=== PATIENT | male | born 1940 | race Caucasian/White ===

== ENCOUNTER 2023-11-08 09:21 | Emergency (ER) | payer MEDICARE, SELFPAY ==
[2023-11-08 09:34] VITALS: BP 124/71
[2023-11-08 09:59] VITALS: BMI 27.1
--- NOTE | 2023-11-08 10:52 | ED.GENMED ---
History of Present Illness
General
Chief Complaint: Musculo-Skeletal Complaint
Source: patient
Time Seen by Provider: 11/08/23 10:03
History of Present Illness
History of Present Illness:
83-year-old male with past medical history of DVT/PE, hyperlipidemia, previous prostate cancer presenting to the emergency department for evaluation of atraumatic left knee pain that has been gradually worsening over the last 3 to 4 days. Patient
states pain started as more of a gradual pain, medial aspect of the knee and nonradiating. Over the last few days pain seems to be more along the mid posterior thigh and extending downward with the pain worsening while standing or ambulating.
Patient notes that he did have 1 fall around 1 month ago but states he did not injure his knee at that time and he does not believe that to have been the cause of his pain today. He denies any fevers, chills, rigors. He is also denying any cough,
chest pain, shortness of breath or any other concerns presently. Patient did not take anything for his pain prior to arrival today.
Past History
Past History
ED Past Medical History: Cancer, Hypercholesterolemia and Other (DVT/PE)
ED Past Surgical History: Cholecystectomy and Orthopedic (discectomy)
Social History
Tobacco: Non-smoker
Alcohol: None
Drug: None
Personal:
Living: with family
Employment: Retired
Review of Systems
Review of Systems
All Other Systems: ROS reviewed and negative except as documented in HPI and ROS
Phy Exam
Physical Exam
Physical Exam:
GENERAL: Alert , in no apparent distress
EYE: conjunctiva clear
Head: Normocephalic atraumatic
NECK: Supple,
ENT: mmm.
LUNGS: no acute respiratory distress
NEUROLOGICAL: Alert and oriented
SKIN: Warm and dry, skin intact.
MUSCULOSKELETAL: Left lower extremity: Mild soft tissue swelling at the anterior patella but no overlying joint effusion. There is no overlying erythema, ecchymosis, abrasions or breaks in the skin. Patient does allow for range of motion but does
have discomfort while doing so. No significant calf edema or tenderness. Extremity is otherwise warm and well-perfused and neurovascularly intact
PSYCH: Normal and appropriate interaction.
Scores
Heart Failure Risk
Heart Failure Risk Score: Not Applicable
Heart Score for Chest Pain Patients
STEMI patient?: Not applicable
Withdrawal Assessment of Alcohol
Withdrawal Assessment Completed?: Not applicable
Course
Orders/Labs/Results
Orders:
Orders
11/08/23 10:07
CR Knee - Left 4 Or More View* Urgent
Comment:
Reason For Exam: left knee pain
11/08/23 10:50
Physical Therapy Consult [Pt Eval And Treat] Urgent
Activity Level: Ambulate
US Periph Venous LOWER Ext LT Urgent
Comment:
Reason For Exam: pain, edema
11/08/23 10:55
Acetaminophen [Tylenol] 1,000 mg PO NOW STA
Oxycodone [Roxicodone] 5 mg PO NOW STA
Vital Signs
Initial and Last Documented VS:
Initial Vital Signs
Temp Pulse BP Pulse Ox
98.0 F 77 124/71 98
11/08/23 09:34 11/08/23 09:34 11/08/23 09:34 11/08/23 09:34
Last Documented Vital Signs
Temp Pulse Resp BP Pulse Ox
98.0 F 68 15 148/61 99
11/08/23 09:34 11/08/23 11:54 11/08/23 11:54 11/08/23 11:54 11/08/23 11:54
MDM/Problems Addressed
Differential Diagnosis Includes:
Osteoarthritis, gout, DVT, no concern for septic joint
MDM/Problems Addressed:
83-year-old male presenting to the emergency department for atraumatic left knee pain x 3 to 4 days. Pain is also along the posterior and medial thigh and also goes down towards the gastrocnemius. No signs of neurovascular compromise and no signs
of infection. Will order x-ray and ultrasound. Pain control with Tylenol and oxycodone. Ordered physical therapy consult as patient states he is having a significantly hard time ambulating even with his walker.
*Radiology
Radiology exam reviewed: preliminary read by ED provider (mild DJD on XR)
*Pulse Oximetry
Patient hypoxic: no
*Critical Care Note
Total Time (30-74mins, 75-104mins- exclusive of procedures): Not Applicable
Patient Management
Discussion with other providers: Other (Physical therapy team)
Escalation/DeEscalation of care consider admission/obs:
Patient's x-ray without any acute pathologies. He was seen by physical therapy and was able to ambulate steadily with a walker. Patient feels comfortable being discharged home. He will follow-up with [facility] orthopedics who is seen in the
past for other orthopedic issues. Aware of return precautions to the emergency department.
ED Attending Note
-
Portions of this chart may have been created with voice recognition software.� Occasional wrong word or��sound alike� substitutions may have occurred due to the inherent limitations of voice recognition software.
Discharge Plan
Departure
Patient Disposition: Home (Routine Discharge)
Date of Disposition: 11/08/23
Time of Disposition: 12:14
Patient with high blood pressure during this ER visit?: Yes
Discharge Problem:
Knee pain, left
Instructions: Knee Pain (DC)
Prescriptions:
New
oxycodone 5 mg tablet
5 mg PO BID PRN (Reason: Pain) Qty: 6 0RF
docusate sodium [Colace] 100 mg capsule
100 mg PO BID Qty: 10 0RF
No Action
tamsulosin 0.4 MG capsule
0.4 mg PO DAILY
acetaminophen 325 MG tablet
650 mg PO Q6HPRN PRN (Reason: FEVER GREATER THAN 101.5) Qty: 0 0RF
polyethylene glycol 3350 17 GRAMS powder in packet
17 grams PO DAILY Qty: 0 0RF
docusate sodium 100 MG capsule
100 mg PO BID Qty: 0 0RF
enoxaparin 80 MG/0.8 ML syringe
80 mg SC Q12H Qty: 10 0RF
azithromycin 250 MG tablet
250 mg PO DAILY Qty: 4 0RF
warfarin [Jantoven] 5 MG tablet
10 mg PO DAILY@1800 Qty: 60 0RF
Rx Instructions:
Take two tablets
cefuroxime axetil 500 MG tablet
500 mg PO BID Qty: 8 0RF
furosemide 40 MG tablet
20 mg PO DAILY Qty: 0 0RF
Rx Instructions:
note decreased dose
meloxicam 7.5 MG tablet
7.5 mg PO BID Qty: 14 0RF
prednisone 10 MG tablet
10 mg PO 20 Qty: 20 0RF
Rx Instructions:
4 tablets daily �2 days. Then one last tab every other day until gone
Referrals:
Iglesia Harrell MD [Family Provider] -
Interventions
Interventions:
*Risk Screen - Suicide Last Done: 11/08/23 09:59
*General Assessment Last Done: 11/08/23 09:59
*Neglect/Abuse Screening Last Done: 11/08/23 09:59
ED- Fall Risk Assessment Last Done: 11/08/23 10:01
*ED COVID-19 Vaccine History Last Done: 11/08/23 09:36
*Nursing Disposition Last Done: 11/08/23 12:30
ED-Musculoskeletal Assessment Last Done: 11/08/23 09:59
Discharge Date and Time
Discharge Date/Time: 11/08/23 12:35
Print Language: MAURITIAN
[2023-11-08] MEDS: TYLENOL 1000 MG PO (11:41)
[2023-11-08] MEDS: ROXICODONE 5 MG PO (11:42)
[2023-11-08 11:54] VITALS: BP 148/61
[2023-11-08 12:19] VITALS: BP 141/86; O2SAT 98
== END 2023-11-08 12:35 | disposition home or self-care (01) ==
LOC: EMR 09:21
PROVIDERS: EMERGENCY PHYSICIAN Emergency Medicine; FAMILY PHYSICIAN Family Medicine
DX: M25.562 Pain in left knee (principal); Z86.711 Personal history of pulmonary embolism; Z86.718 Personal history of other venous thrombosis and embolism; E78.00 Pure hypercholesterolemia, unspecified
CPT/HCPCS: 99284; 73564; 93971

== ENCOUNTER 2024-02-27 18:35 | Inpatient (IN) | payer MEDICARE, SELFPAY ==
[2024-02-27] VITALS (11 sets, daily range): BP systolic 99–143; BP diastolic 55–102; BMI 29.8; BMI 28.8
[2024-02-27 14:36] LABS: ALT (SGPT) 17 U/L (0-50); AST (SGOT) 32 U/L (17-59); Alkaline Phosphatase 53 U/L (38-126); Blood Urea Nitrogen 33 mg/dl (9-20); Calcium 9.6 mg/dl (8.4-10.2); Carbon Dioxide 18 mmol/L (22-30); Chloride 104 mmol/L (98-107); Estimated Creatinine Clearance 25 ml/min; Glucose 103 mg/dl (70-99); Potassium 3.8 mmol/L (3.5-5.1); Sodium 139 mmol/L (135-145); Total Bilirubin 0.5 mg/dl (0.2-1.3); Total Protein 6.1 g/dl (6.3-8.2); eGFR 30.28
[2024-02-27 14:40] LABS: % Basophils 0.5 % (0-2); % Eosinophils 1.5 % (0-6); % Immature Granulocytes 0.5 % (0-0.5); % Lymphocytes 12.5 % (20.5-51.1); % Monocytes 10.5 % (1.7-9.3); % Neutrophils 74.5 % (42.2-75.2); Absolute Eosinophils 0.1 10^3/uL (0-0.7); Absolute Monocytes 0.8 10^3/uL (0.1-0.6); Absolute Neutrophils 5.8 10^3/uL (1.4-6.5); Hematocrit 32.4 % (39.0-52.0); Hemoglobin 11.3 g/dL (13.0-18.0); Mean Corp Hgb Conc. 34.9 g/dL (33.0-37.0); Mean Corpuscular Hgb 30.4 pg (27.0-31.0); Mean Corpuscular Volume 87.1 fL (80.0-94.0); Mean Platelet Volume 9.5 fL (7.4-10.4); Nucleated Red Blood Cells % 0 % (-); Platelet Count 144 10^3/uL (130-400); Red Blood Cell Count 3.72 10^6/uL (4.70-6.10); Red Cell Dist. Width 12.5 % (11.5-14.5); White Blood Cell Count 7.8 10^3/uL (4.8-10.8)
--- NOTE | 2024-02-27 14:41 | ED.GENMED ---
History of Present Illness
General
Chief Complaint: Chest Problem
Source: patient and family
Time Seen by Provider: 02/27/24 14:27
History of Present Illness
History of Present Illness:
This patient is an 84-year-old male with a history of a DVT/PE many years ago, not currently anticoagulated who states that he was feeling his usual self until yesterday when he developed right anterior lower costal discomfort. He describes the
pain as 'like I fell', noticed it was worse with deep breath, better when applying pressure to the area he took Advil and the pain resolved. He woke up this morning and again noted the pain, took Advil with relief of symptoms until approximately 1
PM, when the pain got significantly worse. The pain is in the same location and is not associated with hemoptysis, dyspnea, nausea, vomiting, dizziness, back pain, cough, fever, chills, abdominal pain, or other complaints. Patient has chronic left
lower extremity swelling since he was diagnosed with a DVT there years ago which is unchanged, no new leg swelling. Patient also notes that he has chronic 'mucus' for which she takes Mucinex.
Past History
Past History
ED Past Medical History: Cancer, Hypercholesterolemia and Other (DVT/PE, gout)
ED Past Surgical History: Cholecystectomy and Orthopedic (discectomy)
Social History
Tobacco: Non-smoker
Alcohol: Occasional
Drug: None
Personal:
Living: with family
Employment: Retired
Phy Exam
Physical Exam
Physical Exam:
GENERAL: Alert , in no apparent distress
EYE: pupils equal and reactive
NECK: Supple, no significant adenopathy.
ENT: o/p clr, mmm.
CARDIAC: Regular rate and rhythm .
LUNGS: Clear breath sounds bilaterally, no acute respiratory distress, no wheezes/rales/rhonchi, no skin findings noted on torso area, no tenderness to palpation noted
ABDOMEN: Soft, very mild right upper quadrant tenderness, no r/g, no cvat
NEUROLOGICAL: Alert and oriented, no focal neuro deficits
SKIN: Warm and dry, skin intact.
MUSCULOSKELETAL: No edema, well perfused.
PSYCH: Normal and appropriate interaction.
Course
Orders/Labs/Results
Orders:
Orders
02/27/24 13:51
Electrocardiogram (*1) Urgent
Reason for Study: Shortness of Breath
02/27/24 13:52
EKG- Treatment ONCE
02/27/24 14:13
Complete Blood Count/With Diff Urgent
Comprehensive Metabolic Panel Urgent
NT-proBNP Urgent
Comment: ADDON
Troponin I Urgent
02/27/24 14:47
CT Chest Pe Study Urgent
Comment:
Reason For Exam: R lower costal area pain, hx of PE
02/27/24 14:48
Add On- LAB Urgent
Tests Added?: bnp
02/27/24 14:56
Morphine Sulfate 4 mg IV NOW STA
02/27/24 17:38
PTT Urgent
Comment: Obtain baseline before beginning heparin infusion if not already collected
Heparin 6,500 units IV NOW STA
Pharmacy Request to Place See Dose Instructions PO NOW STA
Discontinue all Active Warfarin orders?: Yes
Nursing to Place Non Medication Order As Directed
Physician Order: PTT 6 hours after initial start of Heparin infusion
02/27/24 17:45
Heparin 60410 Units/250 ml 25,000 units in 250 ml IV PER PROTOCOL
Weight to be used for heparin protocol in kilograms (kg):: 81.2
Protocol:: DVT/PE
PTT Goal Range to be used:: PTT 73 to 111 seconds
Order type:: Initial
INITIAL Infusion Dose (UNITS/KG/hr) & then follow protocol:: 18 units/kg/hr
Infusion Dose in UNITS/hr & then follow protocol (UNITS/hr):: 1,500
INFUSION RATE in mL/hr & then follow protocol (mL/hr):: 15
For DVT/PE algorithm, re-bolus for low PTT?: Yes
PTT less than or equal to 64 seconds:: Re-bolus 80 units/kg (max 10,000units). Increase by 300 units/hr
(+ 3mL/hr)
PTT 64.1 to 72.9 seconds:: Re-bolus 40 units/kg (max 5,000 units). Increase by 200 units/hr
(+ 2mL/hr)
PTT 73 to 111 seconds:: Target Range. No change in rate.
PTT 111.1 to 130.9 seconds:: Decrease rate by 200 units/hr (- 2 mL/hr)
PTT 131 to 199.9 seconds:: HOLD for 1 hr. Then decrease by 200 units/hr (- 2mL/hr)
PTT greater than or equal to 200 seconds:: HOLD for 2 hrs & Notify Provider. Then decrease by 300 units/hr
(- 3mL/hr)
Lab follow-up:: Each change, PTT q6h until 2 consecutive are therapeutic. Then
PTT daily.
02/27/24 18:[address] See Dose Instructions IV DIRECTED
Abnormal Lab Results
02/27/24
14:13
RBC 3.72 L 10^6/uL
(4.70-6.10)
Hgb 11.3 L g/dL
(13.0-18.0)
Hct 32.4 L %
(39.0-52.0)
Absolute Lymphs (auto) 1.0 L 10^3/uL
(1.2-3.4)
Absolute Monos (auto) 0.8 H 10^3/uL
(0.1-0.6)
Lymphocytes % 12.5 L %
(20.5-51.1)
Monocytes % 10.5 H %
(1.7-9.3)
Carbon Dioxide 18 L mmol/L
(22-30)
BUN 33 H mg/dl
(9-20)
Creatinine 2.1 H mg/dL
(0.7-1.3)
Glucose 103 H mg/dl
(70-99)
Total Protein 6.1 L g/dl
(6.3-8.2)
02/27/24 14:13
02/27/24 14:13
Vital Signs
Initial and Last Documented VS:
Initial Vital Signs
Temp Pulse Resp BP Pulse Ox
98.2 F 91 18 132/68 99
02/27/24 13:47 02/27/24 13:47 02/27/24 13:47 02/27/24 13:47 02/27/24 13:47
Last Documented Vital Signs
Temp Pulse Resp BP Pulse Ox
98.2 F 78 14 143/70 98
02/27/24 13:47 02/27/24 14:11 02/27/24 14:11 02/27/24 14:11 02/27/24 14:11
*Critical Care Note
Total Time (30-74mins, 75-104mins- exclusive of procedures): 30
Update Note
Update Note:
Patient presents to the Emergency Department with right anterior costal pain
Number and Complexity of Problems Addressed at the Encounter
� Chronic conditions affecting care:
� Acute Exacerbation and/or Progression of Chronic Illness:
� Differential Diagnosis includes: But not limited to PE, ACS, pneumonia, pleurisy, pneumothorax, etc. etc.
Amount and/or Complexity of Data to be Reviewed and Analyzed
� I performed an independent evaluation of and my interpretation is:
EKG: Read by me, normal sinus rhythm, normal rate, normal axis, no acute ischemia
CT: read by Dr Baldwin This examination is positive for pulmonary embolism. There is right upper lobe pulmonary embolus base of the right upper lobe pulmonary artery, and extending into the anterior and posterior segmental
branches, appearing to spare the apical branches.
There is also embolus within the right middle lobe segmental and subsegmental branches, greatest in the anterior segmental region. No definite evidence for embolus involving the right lower lobe pulmonary artery branches.
No convincing evidence for embolism involving the left lung pulmonary arteries. There is no evidence for central saddle embolism.
The right ventricle appears slightly enlarged, suggesting right heart strain, mild to moderate.
Xrays:
Laboratory Studies:trop wnl, bnp 999, sl renal insuffic
Other:
� Review of other/old records reveals: Patient diagnosed with PE in 2013, discharge summary reviewed
� Clinical information was obtained by an independent historian: Daughter who is bedside
� Prescriptions/Medications Considered but not given:
� Further testing considered but not performed:
Risk of Complications and/or Morbidity or Mortality of Patient Management
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
� Discussion with other providers (PCP, Hospitalists, Consultants, etc):
� Escalation of care including admission/observation vs risk of discharge considered:Pt not hypoxic or hypotensive, CT PE noted, ?mild hrt strain although vitals wnl and trop wnl. Will anticoagulate, admit, d/w intensivists
although I suspect low likelihood a candidate for CDT.
Case d/w dr Mathis, aware of ct, labs, vitals, etc agrees pt not a candidate forCDT at this time,w ill follow along. Case d/w dr Nicholson for admission.Heparin ordered, rn aware.
Reassessment, update to pt and daughter, does not require/request more pain meds at this time, aware of dx and agrees with plan.
ED Attending Note
-
Portions of this chart may have been created with voice recognition software.� Occasional wrong word or��sound alike� substitutions may have occurred due to the inherent limitations of voice recognition software.
Discharge Plan
Departure
Patient Disposition: Admit
Date of Disposition: 02/27/24
Time of Disposition: 17:39
Presentation/result/management discussed w/ accepting MD/DO: Hospitalist
Condition: Fair
Discharge Problem:
Pulmonary embolism
Prescriptions:
No Action
tamsulosin 0.4 MG capsule
0.4 mg PO DAILY
acetaminophen 325 MG tablet
650 mg PO Q6HPRN PRN (Reason: FEVER GREATER THAN 101.5) Qty: 0 0RF
polyethylene glycol 3350 17 GRAMS powder in packet
17 grams PO DAILY Qty: 0 0RF
docusate sodium 100 MG capsule
100 mg PO BID Qty: 0 0RF
enoxaparin 80 MG/0.8 ML syringe
80 mg SC Q12H Qty: 10 0RF
azithromycin 250 MG tablet
250 mg PO DAILY Qty: 4 0RF
warfarin [Jantoven] 5 MG tablet
10 mg PO DAILY@1800 Qty: 60 0RF
Rx Instructions:
Take two tablets
cefuroxime axetil 500 MG tablet
500 mg PO BID Qty: 8 0RF
furosemide 40 MG tablet
20 mg PO DAILY Qty: 0 0RF
Rx Instructions:
note decreased dose
meloxicam 7.5 MG tablet
7.5 mg PO BID Qty: 14 0RF
prednisone 10 MG tablet
10 mg PO 20 Qty: 20 0RF
Rx Instructions:
4 tablets daily �2 days. Then one last tab every other day until gone
oxycodone 5 mg tablet
5 mg PO BID PRN (Reason: Pain) Qty: 6 0RF
docusate sodium [Colace] 100 mg capsule
100 mg PO BID Qty: 10 0RF
Referrals:
Iglesia Harrell MD [Family Provider] -
Interventions
Interventions:
*Risk Screen - Suicide Last Done: 02/27/24 13:47
*General Assessment Last Done: 02/27/24 13:47
*Neglect/Abuse Screening Last Done: 02/27/24 13:47
ED- Fall Risk Assessment Last Done: 02/27/24 15:36
*ED COVID-19 Vaccine History Last Done: 02/27/24 14:10
ED- Cardiac Assessment Last Done: 02/27/24 15:36
ED- Pulmonary Assessment Last Done: 02/27/24 15:36
Discharge Date and Time
Print Language: KOSOVAN
[2024-02-27 14:48] LABS: Troponin I < 0.012 ng/ml
[2024-02-27] MEDS: MORPHINE SULFATE 4 MG IV (15:00)
[2024-02-27 15:34] LABS: NT-proBNP 999 pg/ml
--- NOTE | 2024-02-27 18:06 | HPS.HSE ---
Addendum entered and electronically signed by Kerwin Nicholson MD 02/27/24 18:43:
I saw and examined the patient.
The ELECTROMECHANICAL TECHNOLOGIST or PA's note was reviewed and I agree with the note.
Comment:
84 Non smoker, ET OH use ( 4-6 beers a day less than before ), HX PE/DVT in 2014 , HX CKD3 in o pw Rt lower rib pain with deep breathing consistent with Rt sided dpleurisy. Known HX Chr Lt LE edema which is unchaged due to prior DVT LLEx DVT
Not hypoxic. not tachycardic.
No recent travel
HX CKD3 [address] Robertson amd loss f/u
ASSESSMENT & PLAN
[facility] PE protocol POS for positive for Rt sided acute PE with Right ventricle appears slightly enlarged relative to the left ventricle suggestive of mild to moderate RH strain.
Hemodynamically stable .
Not a catheter directed thrombolysis (CDT ) candidate
HX PE/DVT in 2014
Chr LLEx edema since s/p LLEx DVT
- Heparin gtt
- ECHO in AM
- Pul consult
VERONICA with Cr 2.2 likely due to recent NSAIDs use plus prerenal origin with likely acute PHT 2/2 to acute PE
HX CKD 3- baseline Cr 1.3
Recent dye load for CTC pE study
- Heparin gtt
- avoid any nephrotic ages
- Empiric IV NS @ 60/H for 1 L
- Trend Cr
HX ETOH use disorder 4- 6 cans of beer
- a lot less than before
- no prior HX ETOH WDS
- ETOH WD protocol
DVT Px; on heparin gtt
Full code
IMU
-
Original Note:
Family Physician
-
Family Physician: Iglesia Harrell
Chief Complaint
-
Chest Pain
History of Present Illness
Patient is an 84 y/o male past medical history of CKD, Hypertension, Prostate Cancer and prior DVT/PE who presents with right lower chest pain. Patient reports symptoms started yesterday, and worsened today prompting him to come to the emergency
department for evaluation. He reports pain is much worse when he takes a deep breath, and notes he has to hold his right rib cage because of the pain. He reports chronic lower extremity edema since his DVT 10 years ago. He reports he is very
active. He denies any recent travel.
Medical History
Past Medical History
Past Medical History: Reports Other
Additional Past Medical History:
Essential Hypertension
Hyperlipidemia
CKD Stage III
DVT/PE in 2013
Prostate Cancer s/p Prostatectomy
Past Surgical History: Reports Other
Additional Past Surgical History:
Cholecystectomy
Prostatectomy
Lumbar Spine Surgery
Bilateral Carpal Tunnel
Social History
Tobacco: Non-smoker
Alcohol: Daily (4-6 Beers Daily)
Family History
Family History: Not pertinent
Allergies / Home Medications
Allergies reflects when Allergies were last updated in [facility].
Home Medications with original date entered in [facility]
Allergy/Medication List:
Allergies
Allergy/AdvReac Type Severity Reaction Status Date / Time
No Known Allergies Allergy Verified 02/27/24 13:47
Home Medications
Pregaven 1 cap PO DAILY 02/27/24
acetaminophen 325 mg tablet (Tylenol) 325 mg PO BIDPRN PRN mild pain 02/27/24
dextromethorphan-guaifenesin 30 mg-600 mg tablet extended [id number] hr (Mucinex DM) 1 tab PO DAILY 02/27/24
ibuprofen 200 mg tablet (Advil) 200 mg PO Q6HPRN PRN mild pain 02/27/24
rosuvastatin 10 mg tablet (Crestor) 10 mg PO DAILY 02/27/24
therapeutic multivitamin 1 tab PO DAILY 02/27/24
Review of Systems
-
A 12 point ROS was completed and negative except as noted: Yes
Constitutional: Denies Fever or Chills
Respiratory: Reports Trouble Breathing; Denies Cough
Cardiac: Reports Chest Pain; Denies Palpitations
Physical Exam
Vital Signs
Vital Signs
Temp Pulse Resp BP Pulse Ox
98.2 F 78 14 143/70 98
02/27/24 13:47 02/27/24 14:11 02/27/24 14:11 02/27/24 14:11 02/27/24 14:11
Physical Exam
General: Comfortable and Conversant
HEENT: Anicteric and Moist mucous membranes
Respiratory: Clear, Non Labored Respirations and Other (Notable right rib pain with inspiration)
Cardiac: S1/S2 and Regular Rhythm; No Tachycardia
GI: Soft and Non Tender
Musculoskeletal: No Clubbing, No Cyanosis and Edema, Left Lower Extremity
Skin: Warm and Dry
Neuro: Awake, Alert, Oriented and Nonfocal/grossly intact
Psych: Calm
Laboratory Results
-
02/27/24 14:13
02/27/24 14:13
Laboratory Results
Total Bilirubin 0.5 mg/dl (0.2-1.3) 02/27/24 14:13
AST 32 U/L (17-59) 02/27/24 14:13
ALT 17 U/L (0-50) 02/27/24 14:13
Alkaline Phosphatase 53 U/L (38-126) 02/27/24 14:13
Troponin I < 0.012 ng/ml 02/27/24 14:[address]:
Examination is positive for pulmonary embolism on the right side as described.
Right ventricle appears slightly enlarged relative to the left ventricle, suggestive of mild to moderate right heart strain.
Data Reviewed
-
CT Scan: Report Reviewed by me
Lab Data: Labs Reviewed by me
Impression/Plan
-
Sub-Massive Pulmonary Embolism with Mild/Moderate Right Heart Strain
-Admit to IMU for close monitoring
-Consult Pulmonary
-Check Echocardiogram
-Continue heparin drip
Elevated Creatinine
-Prior outpatient Nephrology records from 2019 indicate CKD III however no follow-up since that time
-Will attempt to obtain records from PCP for most recent lab work
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
Hyperlipidemia
-Continue Crestor
Code Satus: Full Code
[2024-02-27] MEDS: HEPARIN 6500 UNITS IV (18:18)
[2024-02-27] MEDS: HEPARIN 25000 UNITS/250 ML IV (18:19)
[2024-02-27 18:36] LABS: APTT 40.3 Sec (23.4-35.0)
--- NOTE | 2024-02-27 20:30 | PTCARENOTE ---
received pt as admission from ED into room 3353. pt pulled over from stretcher to bed. Pt AAOX3, reports that he is forgetful at times. Heparin gtt infusing per protocol. SR on telemetry heart rate 70-80s. pulses palpable. +1 pitting edema in lower
extremities, left greater than right (patient states this is normal for him). Pt on room air, sat 93%. lung sounds diminished in bases. pt reports right sided rib pain with inhalation. active bowel sounds. pt denies urge to void. admission questions
completed. daughter at bedside. pt udpated on plan of care. see worklist for full nursing assessment and interventions.
[2024-02-27] MEDS: NSS 1000 IV (21:00)
[2024-02-27] MEDS: THIAMINE INJECTION 200 MG IV (21:21)
[2024-02-27] MEDS: MELATONIN 3 MG PO (21:53)
--- NOTE | 2024-02-27 22:35 | PTCARENOTE ---
pt sating 88% on room air. pt placed on 2L nasal cannula, sat now 95%.
[2024-02-28] VITALS (13 sets, daily range): BP systolic 95–144; BP diastolic 51–76; BMI 28.8
[2024-02-28 00:53] LABS: APTT > 200 Sec (23.4-35.0)
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
[2024-02-28] MEDS: CRESTOR 10 MG PO (09:08)
[2024-02-28] MEDS: FOLVITE 1 MG PO (09:08)
[2024-02-28] MEDS: THIAMINE INJECTION 200 MG IV ×2 (09:09→19:24)
[2024-02-28 09:41] LABS: % Basophils 0.7 % (0-2); % Eosinophils 4.1 % (0-6); % Immature Granulocytes 0.2 % (0-0.5); % Lymphocytes 17.7 % (20.5-51.1); % Monocytes 10.2 % (1.7-9.3); % Neutrophils 67.1 % (42.2-75.2); Absolute Eosinophils 0.2 10^3/uL (0-0.7); Absolute Monocytes 0.6 10^3/uL (0.1-0.6); Absolute Neutrophils 3.7 10^3/uL (1.4-6.5); Mean Corp Hgb Conc. 34.5 g/dL (33.0-37.0); Mean Corpuscular Hgb 30.9 pg (27.0-31.0); Mean Corpuscular Volume 89.5 fL (80.0-94.0); Mean Platelet Volume 9.1 fL (7.4-10.4); Nucleated Red Blood Cells % 0 % (-); Platelet Count 135 10^3/uL (130-400); Red Blood Cell Count 3.24 10^6/uL (4.70-6.10); Red Cell Dist. Width 12.6 % (11.5-14.5); White Blood Cell Count 5.6 10^3/uL (4.8-10.8)
[2024-02-28 10:15] LABS: APTT 193.7 Sec (23.4-35.0)
[2024-02-28] MEDS: LIDOCAINE 4% PATCH 1 PATCH TOPICAL (10:26)
[2024-02-28 10:53] LABS: Blood Urea Nitrogen 28 mg/dl (9-20); Calcium 8.8 mg/dl (8.4-10.2); Carbon Dioxide 21 mmol/L (22-30); Chloride 108 mmol/L (98-107); Estimated Creatinine Clearance 27 ml/min; Glucose 91 mg/dl (70-99); Potassium 4.6 mmol/L (3.5-5.1); Sodium 140 mmol/L (135-145); eGFR 36.43
--- NOTE | 2024-02-28 11:15 | W.PN.HOSP.TC ---
Today's Communication/Plan
-
Continue IV heparin, plan for DOAC
Follow-up TTE
Trend CBC and BMP
Assessment / Plan
Assessment / Plan
#Submassive pulmonary embolus
-CTA thorax PE protocol showed right side acute PE, signs of RV strain
-Not determined to be catheter directed thrombolysis candidate
-Second thromboembolic event, had a PE/DVT in 2015 as well
-Will likely need lifelong anticoagulation as this is a secondary PE
-No known underlying hypercoagulability; no known risk factors per Virchow's
-Currently on heparin drip, has not been hypoxemic while here
Plan
-Continue with IV heparin drip for now
-Plan to transition to Eliquis 10 mg to complete 7-days, 5 mg thereafter
-Follow-up echocardiogram
-Monitor CBC on AC
#VERONICA on CKD 3
-Suspect prerenal in context of acute PE, also with recent NSAID use
-Baseline creatinine near 1.3, creatinine 2.2 on arrival; no signs of obstruction
-Will start him on IV fluids, renal function improving
-Continue with IVF and trend BMP
-Avoid unnecessary nephrotoxins
#EtOH use disorder
-States he drinks 4 to 6 cans of beer daily
-Denies history of withdrawal
-On withdrawal protocol now
DVT prophylaxis: Heparin drip
Diet: Regular
CODE STATUS: Full code
Anticipated Discharge: 24 - 48 hours
Subjective/Interval History
-
Date of Service: February 28, 2024
Seen and examined at bedside. No acute events overnight. AFVSS this morning on room air.
Renal function improving with IV fluids. Patient states he has stable dyspnea, pleuritic right chest pain as well.
Denies chest tightness, fevers or chills, GI upset, urinary issues, bleeding or bruising, paresthesias or weakness
Objective Data
-
Labs:
Laboratory Results
10/14/24 10/14/24 10/14/24
00:13 06:00 09:28
WBC Cancelled 5.6
Hgb Cancelled 10.0 L
Hct Cancelled 29.0 L
Plt Count Cancelled 135
APTT > 200 H* 193.7 H*
Sodium 140
Potassium 4.6
Chloride 108 H
Carbon Dioxide 21 L
BUN 28 H
Creatinine 1.8 H
Glucose 91
Calcium 8.8
02/28/24
17:30
WBC
Hgb
Hct
Plt Count
APTT Pending
Sodium
Potassium
Chloride
Carbon Dioxide
BUN
Creatinine
Glucose
Calcium
Vital Signs:
Vital Signs
Temp Pulse Resp BP Pulse Ox
98.2 F 63 14 117/65 93
02/28/24 11:08 02/28/24 09:00 02/28/24 09:00 02/28/24 08:00 02/28/24 09:46
I&O
02/27/24 02/28/24 02/29/24
06:59 06:59 06:59
Intake Total 1188 / 1188
Output Total 200 / 200
Balance 988 / 988
Review of Systems
-
History Source: Patient
All other systems: Reviewed and negative
Physical Exam
-
General: Well Nourished, No Apparent Distress and Comfortable
HEENT: Normocephalic, Atraumatic and Moist Mucous Membranes
Respiratory: Clear to Auscultation and Non Labored Respirations; Negative Wheezes, Rales, Rhonchi or Accessory Resp Muscle Use
Cardiac: Regular Rhythm and S1/S2; Negative Murmur, Rub, JVD or Gallop
GI: Soft, Nontender, Nondistended and Normal Bowel Sounds
Musculoskeletal: No Clubbing, No Cyanosis, No Edema and Normal Gait & Station
Skin: Warm and Dry; Negative Rash
Neuro: AO x 3, Nonfocal/Grossly Intact and Central Nerve's Intact
Psych: Calm
Data Reviewed
-
Labs: Labs Reviewed by me and Discussed with Patient
--- NOTE | 2024-02-28 13:10 | CM ---
Addendum entered by Mabel Tian RN 02/28/24 13:27:
CM Consult Substance Abuse- patient doesn't feel he has any issues with Etoh and doesn't want any help with this.
Original Note:
Patient with Dx Submassive pulmonary embolus. Room air. Receiving Heparin gtt, IVF, IV Folic Acid.
Met with patient and spoke with daughter Melody by phone;
the patient resides with his in a 1 story house with no HOLLY.
He has been independent in ADLs and ambulatory without using any assistive devices.
The patient is active, shops and drives.
No food/housing/utility/transport insecurities.
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 His daughter Melody came up from [place] to care for her mother/the patient's . She is hoping to only have to stay here a few days as she is a teacher. The daughter also has
a child at home with special needs, however the son in law is caring for him. The daughter plans on setting up a caregiver for the patient's 2-4 hrs/day and hoping the caregiver can also assist the patient as needed. Offered to provide DH
Caregiver list---> sent to her email at [email or web address]
The patient has no DME, prior VN or SNF.
PCP - [facility] Harrell
Pharmacy - [facility], [place]
Offered VN and patient and daughter agree to [facility] for nurse---> referral to NATALEE Mccord Liaison.
Plan home with [facility], and possibly with [employer] supervisor caregiver.
--- NOTE | 2024-02-28 13:19 | PTCARENOTE ---
Rec'd pt this AM on Heparin drip. Education regarding PE Provided. 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 RN spoke to pt's daughter who is visiting [facility] and is staying to care for her mother while pt is in the hospital. Vital
signs stable. resting comfortably
--- NOTE | 2024-02-28 14:40 | VNURNOTE ---
Home Health Liaison spoke with patient to discuss [facility] nurse/therapy, visits, schedule and homebound status. Patient is agreeable and understands that visits at home will be 2-3 x per week to assess and teach medical management. Patient is
interested in home care for his spouse as well. He is primary CG for her. Instructed that [facility] will need an order from PCP for services for his spouse. We are happy to assist with that once he starts our services. Patient in agreement. Patient
aware that [facility] will contact them for start of care in 1-2 days after discharge from .
[facility] referral completed in [facility].
--- NOTE | 2024-02-28 15:56 | CARDSERVLU ---
Echocardiogram with [facility]ason completed after protocol screening completed. Allergies verified.
Patent IV site: _left FA____
IV site flushed with 0.9% NaCl pre and post administration.
Diluted bolus method utilized to enhance visualization of ventricular srivastava.
Total volume given: _3.5___ mL
Patient tolerated all procedures well without complications.
[2024-02-28] MEDS: HEPARIN 25000 UNITS/250 ML IV (17:31)
[2024-02-28 17:51] LABS: APTT 83.5 Sec (23.4-35.0)
--- NOTE | 2024-02-28 21:46 | PTCARENOTE ---
assumed care of patient, pt is AAOx3 forgetful at times, able to make needs known. VSS- 90-92% RA. heparin gtt infusing at 10ml/hr 1000 units/hr. next PTT due at 0030. pt reports productive moist cough d/t allergies. no SOB. some swelling noted to
legs, left greater than right. care ongoing.
--- NOTE | 2024-02-28 22:43 | PTCARENOTE ---
pt's oxygen dropping to 87% on RA while sleeping, pt placed on 2L NC now 93%.
[2024-02-29] VITALS (9 sets, daily range): BP systolic 114–142; BP diastolic 63–75
[2024-02-29 01:06] LABS: APTT 96.8 Sec (23.4-35.0)
[2024-02-29 05:40] LABS: % Basophils 0.8 % (0-2); % Eosinophils 4.9 % (0-6); % Immature Granulocytes 0.4 % (0-0.5); % Monocytes 9.6 % (1.7-9.3); % Neutrophils 63.3 % (42.2-75.2); Absolute Eosinophils 0.2 10^3/uL (0-0.7); Absolute Monocytes 0.5 10^3/uL (0.1-0.6); Hematocrit 27.5 % (39.0-52.0); Hemoglobin 9.5 g/dL (13.0-18.0); Mean Corp Hgb Conc. 34.5 g/dL (33.0-37.0); Mean Corpuscular Hgb 30.2 pg (27.0-31.0); Mean Corpuscular Volume 87.3 fL (80.0-94.0); Mean Platelet Volume 9.3 fL (7.4-10.4); Nucleated Red Blood Cells % 0 % (-); Platelet Count 159 10^3/uL (130-400); Red Blood Cell Count 3.15 10^6/uL (4.70-6.10); Red Cell Dist. Width 12.3 % (11.5-14.5); White Blood Cell Count 4.7 10^3/uL (4.8-10.8)
[2024-02-29 05:52] LABS: APTT 104.6 Sec (23.4-35.0)
[2024-02-29 06:27] LABS: Blood Urea Nitrogen 24 mg/dl (9-20); Calcium 8.6 mg/dl (8.4-10.2); Carbon Dioxide 18 mmol/L (22-30); Chloride 110 mmol/L (98-107); Estimated Creatinine Clearance 27 ml/min; Glucose 97 mg/dl (70-99); Potassium 4.3 mmol/L (3.5-5.1); Sodium 141 mmol/L (135-145); eGFR 36.43
--- NOTE | 2024-02-29 08:28 | PN.CDI ---
CDI
- -
CDI:
Physician Documentation Request
Admit Date: 02/27/24 18:35
Dear Doctor Ken,
Please review the following and provide your response in the progress notes.
Clinical Indicators:
PN, 02/27
#Submassive pulmonary embolus
#...-CTA thorax PE protocol showed right side acute PE, signs of RV strain
Based on the above and your clinical assessment, please clarify in the progress notes, the appropriate diagnosis, if significant, that supports the above abnormalities and additional evaluation, monitoring and/or treatment rendered:
Acute Pulmonary Embolus with Acute Cor Pulmonale
RV strain only
Other(please specify)
Use of terms such as suspected, likely, concern for, or probable (associated with a specific diagnosis that is being evaluated, monitored, or treated as if it exists) are acceptable and can be coded in the inpatient setting, when documented at the
time of discharge.
Thank you,
Paula Correia RN BSN CCDS
CDI Specialist
please contact via tiger text
Please use your independent medical judgment in providing your response.
[2024-02-29] MEDS: FOLVITE 1 MG PO (08:45)
[2024-02-29] MEDS: CRESTOR 10 MG PO (08:45)
[2024-02-29] MEDS: THIAMINE INJECTION 200 MG IV (08:46)
[2024-02-29] MEDS: LIDOCAINE 4% PATCH 1 PATCH TOPICAL (08:46)
[2024-02-29] MEDS: TYLENOL 650 MG PO (08:56)
[2024-02-29] MEDS: NSS 1000 IV (08:57)
--- NOTE | 2024-02-29 09:34 | W.PN.PUL3 ---
Today's Communication / Plan
-
Systemic anticoagulation currently with heparin drip --> being transitioned to NOAC tonight
Echo shows normal biventricular size and systolic function with no regional WMA, trace TR with mild pulmonary hypertension and normal RV size/function. Consider repeating echo in 4 to 6 weeks to assure his pulmonary pressures improve
Outpatient follow-up for PFTs with diffusing capacity
Resting SpO2 is <96% � check home O2 assessment prior to discharge
Patient is being transitioned to NOAC this evening with plans to be DC'd home afterwards. Outpatient follow-up will be arranged for full PFTs. Pulmonary service will now sign off. Please reconsult if there are any additional questions/concerns,
or if patient's respiratory status deteriorates.
Assessment
-
Assessment: 84-year-old male with a past medical history of PE/DVT (2014), lymphocytic colitis, prostate cancer s/p prostatectomy, CKD and osteoarthritis who presents with right-sided chest pain + shortness of breath. 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
He is a fairly active male, and denies any recent travel. In the ER he was afebrile to 98.2 �F, pulse rate 91, RR:18, BP 132/68, SpO2 99% on room air. Labs showed WBC 7.8, Hb 11.3, Cr 2.1, troponin: <0.012, and BNP: 999. CTA chest obtained showing
a right sided acute PE (RUL + RML) with RV strain. Patient started on heparin drip and also given morphine, and admitted to the hospitalist service for further care. Pulmonary service now consulted for additional management/recommendations.
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
history of DVT
Impression:
#Acute submassive right-sided PE with RV strain
#LLE DVT
#Anemia
#Acute kidney injury on chronic kidney disease
#History of prostate cancer s/p prostatectomy
#Lymphocytic colitis
#History of PE/DVT (2015) complicated by chronic LLE lymphedema
Plan:
- Given this is a submassive PE with thrombus seen in the RUL + RML with mild as moderate RV strain and negative troponin, no indication for catheter-directed thrombolysis or thrombectomy at this time
- Agree with systemic anticoagulation
- Continue with heparin drip x 48 hrs then would transition to NOAC --> ok to transition to Eliquis today after 48 hrs of hep gtt; case management consult to assess affordability of Eliquis
- Lower extremity duplex shows extensive left lower extremity DVT
- Check transthoracic echo --> normal RV size and function with mild pulmonary hypertension with PASP 31 mmHg assuming RAP of 3 mmHg
- Recommend outpatient hematology evaluation for hypercoagulable workup and duration of AC management
- Maintain SpO2 >90-94% with supplemental O2 as needed --> given that resting SpO2 is <93% on room air, check walking pulse oximetry prior to discharge
- Incentive spirometer encouraged 10x per hour for at least 4 hours a day
- Pain control
- Replete electrolytes with K>4, Mg>2
- Maintain euglycemia with goal BG >100 and <180
- prn nebulized bronchodilators - not currently bronchospastic
- DVT ppx: heparin gtt --> changing to Eliquis tonight
Patient is being transitioned to NOAC today and then plan to be discharged home. Outpatient follow-up will be arranged for full PFTs. Pulmonary service will now sign off. Thank you for allowing us to be involved in the care of this patient.
Please reconsult if there are any additional questions/concerns, or if patient's respiratory status deteriorates.
Data:
CTA Chest 02/27/2024:
Examination is positive for pulmonary embolism on the right side.
Right ventricle appears slightly enlarged relative to the left ventricle, suggestive of mild to moderate right heart strain.
Bilateral lower extremity US duplex 02/29/2024:
No evidence of deep venous thrombosis of the right lower extremity.
Extensive deep venous thrombosis of the left lower extremity, as detailed above.
Total time spent today was 36 minutes for this encounter. Time includes reviewing laboratory test/imaging results, reviewing pertinent medical records, obtaining and reviewing medical history, performing an appropriate exam, ordering medications,
tests and procedures. Time also includes documentation of this encounter, coordinating patient care and communicating with other healthcare professionals. Total time does not include separately billed tests performed on this date of service.
Subjective Data
-
Date of Service:
Date of Service: February 29, 2024
Chief Complaint: Pulmonary Follow Up
Subjective:
Patient seen and evaluated today at bedside. He is doing well. Eager to go home. Remains on heparin drip. Heart rate 60, BP 114/64 and saturating 90% on room air. Continues to feel generalized weakness but no SOB, GUILLERMO, nausea, fevers or chills.
Still some mild right-sided rib pain when taking a deep breath.
Review of Systems
General: Other (Negative unless mentioned above)
Objective Data
Data Reviewed
Vital Signs / I&O / Oxygen:
Vital Signs
Temp Pulse Resp BP Pulse Ox
98.6 F 66 17 124/69 95
02/29/24 07:57 02/29/24 06:00 02/29/24 06:00 02/29/24 06:00 02/29/24 06:00
Intake and Output
02/28/24 02/29/24 03/01/24
06:59 06:59 06:59
Intake Total 1188 / 1188
Output Total 200 / 200 300 / 300
Balance 988 / 988 -300 / -300
SaO2 95
Physical Exam
General: Respiratory Distress (negative), Comfortable, Chills (negative) and Sweats (negative)
HEENT: Normocephalic and Anicteric
Cardiovascular: S1-S2 and Peripheral Edema (negative)
Respiratory: Clear, Wheeze (negative), Crackles (negative), Rhonchi (negative) and Non-Labored Respirations
GI: Soft, Non Distended, Non Tender and Normal Bowel Sounds
Neurology: Awake, Alert and Tremors (negative)
Skin: Warm, Dry, Cyanosis (negative), Jaundice (negative) and Other (Reproducible right anterior rib pain (7-8th) with palpation)
Labs/Micro/Reports
Lab Data
02/29/24 05:13
02/29/24 05:13
Laboratory Results
02/28/24 02/29/24 02/29/24
17:30 00:35 05:13
APTT 83.5 H 96.8 H 104.6 H
--- NOTE | 2024-02-29 09:47 | W.PN.HOSP.TC ---
Today's Communication/Plan
-
Transition to DOAC this evening
Continue with IVF for now
Possible discharge
Assessment / Plan
Assessment / Plan
#Submassive pulmonary embolus without cor pulmonale
-CTA thorax PE protocol showed right side acute PE, signs of RV strain
-Echocardiogram yesterday was without significant RV strain/dilation
-Not determined to be catheter directed thrombolysis candidate
-Second thromboembolic event, had a PE/DVT in 2015 as well
-Will likely need lifelong anticoagulation as this is a secondary PE
-No known underlying hypercoagulability; no known risk factors per Abdiaziz's
-Currently on heparin drip, has not been hypoxemic while here
Plan
-Continue with IV heparin drip for now, transition to DOAC tonight
-Plan to transition to Eliquis 10 mg to complete 7-days, 5 mg thereafter
-Monitor CBC on AC
-Outpatient hypercoagulability workup
#VERONICA on CKD 3
-Suspect prerenal in context of acute PE, also with recent NSAID use
-Baseline creatinine near 1.3, creatinine 2.2 on arrival; no signs of obstruction
-Will start him on IV fluids, renal function improving with creatinine 1.8
-Continue with IVF and trend BMP
-Avoid unnecessary nephrotoxins
#EtOH use disorder
-States he drinks 4 to 6 cans of beer daily
-Denies history of withdrawal
-On withdrawal protocol now
DVT prophylaxis: Heparin drip
Diet: Regular
CODE STATUS: Full code
Anticipated Discharge: Within 24 hours
Subjective/Interval History
-
Date of Service: February 29, 2024
Seen and examined at bedside. No acute events overnight. AFVSS this morning.
Renal function stable, possible component of contrast-induced nephropathy. Patient states that he needs to go home today as his daughter is in town and has to leave tomorrow, currently taking care of his
He denies chest pain, dyspnea, fevers or chills, abnormal bleeding or bruising, paresthesias or weakness, GI issues, urinary issue
Objective Data
-
Labs:
Laboratory Results
02/29/24 02/29/24
00:35 05:13
WBC 4.7 L
Hgb 9.5 L
Hct 27.5 L
Plt Count 159
APTT 96.8 H 104.6 H
Sodium 141
Potassium 4.3
Chloride 110 H
Carbon Dioxide 18 L
BUN 24 H
Creatinine 1.8 H
Glucose 97
Calcium 8.6
Vital Signs:
Vital Signs
Temp Pulse Resp BP Pulse Ox
98.6 F 66 17 124/69 95
02/29/24 07:57 02/29/24 06:00 02/29/24 06:00 02/29/24 06:00 02/29/24 06:00
I&O
02/28/24 02/29/24 03/01/24
06:59 06:59 06:59
Intake Total 1188 / 1188
Output Total 200 / 200 300 / 300
Balance 988 / 988 -300 / -300
Review of Systems
-
History Source: Patient
All other systems: Reviewed and negative
Physical Exam
-
General: Well Nourished, No Apparent Distress and Comfortable
HEENT: Normocephalic, Atraumatic and Moist Mucous Membranes
Respiratory: Clear to Auscultation and Non Labored Respirations; Negative Wheezes, Rales or Rhonchi
Cardiac: Regular Rhythm and S1/S2; Negative Murmur, Rub or Gallop
GI: Soft, Nontender, Nondistended and Normal Bowel Sounds
Musculoskeletal: No Clubbing, No Cyanosis and No Edema
Skin: Warm and Dry; Negative Rash
Neuro: AO x 3, Nonfocal/Grossly Intact and Central Nerve's Intact
Psych: Calm
Data Reviewed
-
Labs: Labs Reviewed by me and Discussed with Patient
--- NOTE | 2024-02-29 11:54 | PTCARENOTE ---
Assumed care of patient this morning. He is asking to go home repeatedly. made aware and was at the bedside to discuss plan with patient, which he voiced understanding. Pt's daughter then was at bedside and she was updated per RN ability.
Pt c/o of headache this morning, medicated with Tylenol per patient request. Pt also has Lidocaine patch to his R ribs but patient reports it does not hurt as much today. Heparin gtt infusing. Assessment, care and VS as charted.
--- NOTE | 2024-02-29 12:59 | W.DCSUMMARY ---
Discharge Summary
Discharge Data
Date of Admission: 02/27/24
Date of Discharge: 02/29/24
-
Pending Results: No
Hospital Course
84-year-old male with CKD 3, HTN, HLD, alcohol use, H/O PE (no AC), H/O prostate cancer s/p TURP that presented to the ED with right-sided pleuritic chest pain and dyspnea. CTA on arrival showed evidence of subsegmental pulmonary embolism within
the right lower lung. Signs of heart strain seen on CT. Follow-up echocardiogram without RV dilation or reduced RV systolic function. Was initially started on IV heparin drip for 48-hour. In the context of presumed submassive pulmonary embolism.
Was transitioned from heparin to 10 mg Eliquis to complete 7 days of therapy. To transition down to 5 mg twice daily thereafter. Should follow-up with primary care doctor with consideration for molder floor referral. Would benefit from
hypercoagulable workup including antiphospholipid antibodies, factor V Leiden mutation, protein C/S mutations
He also did have a acute kidney injury with creatinine >2.0 on arrival. Improved with IV fluids though only slightly, suspect a degree of superimposed contrast-induced nephropathy from CTA on arrival. Patient and daughter were adamant that he
needed to leave the hospital on 02/29/2024. Stated that the daughter was in town to help care for the mother while the patient was hospitalized, however she needed to leave for work responsibilities. Provided prescriptions for CBC and BMP for 5 to
7 days after discharge to recheck renal function counseled on anticoagulant
Discharge Plan
-
Patient Disposition: Home (Routine Discharge)
Discharge Diagnosis/Procedures: Acute pulmonary embolism
Acute kidney injury
Condition: Good
Diet: No restrictions
Additional Diets: Drink >64 ounces water daily
Activity: As tolerated
Driving Restrictions: No driving for 24 hours
Bathing Restrictions: None
Blood Work: Labs 5 days after discharge:
-BMP to recheck kidney function
-CBC to check blood counts while on blood thinner
Activity Restrictions/Additional Instructions:
Schedule follow-up appointment with family doctor within 7 days of discharge. Speak to him about ordering 'hypercoagulable workup' to assess for causes of your blood clot. Suggested labs include factor V Leiden testing, protein C/S mutation
testing, antiphospholipid antibodies.
Referral for heat treating furnace tender provided. Call office to schedule appointment within 4 to 6 weeks of discharge
Referrals:
Iglesia Harrell MD [Family Provider] -
Charlie Brar MD [Active] - in four to six weeks (full PFTs on day of office visit)
Additional Discharge Medication Instructions: Start 10 mg Eliquis twice daily for 5 days after discharge THEN 5 mg twice daily indefinitely
Continue with folic acid and thiamine supplements daily
Stop taking ibuprofen for pain, use Tylenol instead
Prescriptions:
New
folic acid 1 mg Tablet
1 mg PO DAILY 30 Days Qty: 30 0RF
thiamine HCl (vitamin B1) 100 mg Tablet
100 mg PO BID 30 Days Qty: 60 0RF
Eliquis 5 mg tablet
5 mg PO BID 30 Days Qty: 70 0RF
Rx Instructions:
Take 2 tablets twice daily for 5 days after discharge
After 5 days, take 1 tablet twice daily
Continued
acetaminophen [Tylenol] 325 mg Tablet
325 mg PO BIDPRN PRN (Reason: mild pain)
therapeutic multivitamin Tablet
1 tab PO DAILY
Mucinex DM 30-600 mg Tablet Extended Release 12 Hr
1 tab PO DAILY
rosuvastatin [Crestor] 10 mg Tablet
10 mg PO DAILY
Pregaven capsule
1 cap PO DAILY
Discontinued
ibuprofen [Advil] 200 mg Tablet
200 mg PO Q6HPRN PRN (Reason: mild pain)
Discharge Orders:
Discharge Patient (As Directed); Ordered 02/29/24
Ordered By: Marco Rogers
Discharge Date and Time
Print Language: ARABIC
--- NOTE | 2024-02-29 16:14 | CM ---
Met with patient and spoke with daughter Melody by phone; both agree to d/c home today. IMM completed. Patient/daughter aware that [facility] is setup. Daughter has [facility] caregiver list and will discuss further with patient when he returns home- the
caregiver will be for the to lessen the caregiver burden for the patient. Daughter will provide transport home today.
Plan home today with [facility].
[2024-02-29] MEDS: FLUAD (65 yr+) 2024-2025 FORMULA 0.5 ML IM (18:06)
[2024-02-29] MEDS: ELIQUIS 10 MG PO (18:34)
== END 2024-02-29 18:40 | disposition home health service (06) | DRG 176 ==
LOC: IMU 18:35
PROVIDERS: Emergency Medicine; Nurse Practitioner Family; Physician Assistant Medical; ADMITTING PHYSICIAN Internal Medicine; ATTENDING PHYSICIAN Internal Medicine; EMERGENCY PHYSICIAN Emergency Medicine; FAMILY PHYSICIAN Family Medicine; OTHER PHYSICIAN Internal Medicine Critical Care Medicine
DX: I26.93 Single subsegmental thrombotic pulmonary embolism without acute cor pulmonale (principal); N17.9 Acute kidney failure, unspecified; N25.81 Secondary hyperparathyroidism of renal origin; N18.30 Chronic kidney disease, stage 3 unspecified; M19.90 Unspecified osteoarthritis, unspecified site; K52.9 Noninfective gastroenteritis and colitis, unspecified; F10.10 Alcohol abuse, uncomplicated; I12.9 Hypertensive chronic kidney disease with stage 1 through stage 4 chronic kidney disease, or unspecified chronic kidney disease
CPT/HCPCS: 71275; 80048; 80053; 83880; 84484; 85025; 85730; 90662; 93005; 93306; 93970; 96374; 99291; G0008; Q9950; Q9967

== ENCOUNTER → 2024-10-11 16:06 | Outpatient (REF) | payer MEDICARE, SELFPAY | LOC: MRI 16:06 | PROVIDERS: ATTENDING PHYSICIAN Pain Medicine Interventional Pain Medicine | DX: M54.16 Radiculopathy, lumbar region (principal) | CPT/HCPCS: 72148 ==

== ENCOUNTER → 2024-10-31 09:51 | Outpatient (REF) | payer MEDICARE, SELFPAY | LOC: HWCARD 09:51 | PROVIDERS: ATTENDING PHYSICIAN Physical Medicine & Rehabilitation; FAMILY PHYSICIAN Family Medicine | DX: Z01.818 Encounter for other preprocedural examination (principal) | CPT/HCPCS: 93005 ==

== ENCOUNTER 2025-02-20 11:07 | Emergency (ER) | payer MEDICARE, SELFPAY ==
[2025-02-20 11:12] VITALS: BP 149/83
--- NOTE | 2025-02-20 12:29 | ED.MUSCINJ ---
HPI-Injury
General
Chief Complaint: Musculo-Skeletal Complaint
Source: patient
Exam Limitations: none
Time Seen by Provider: 02/20/25 12:10
History of Present Illness-Injury
Initial Injury comments:
85-year-old male with history of spinal stenosis presents complaining of worsening pain to the bilateral lower extremities. He states he has to lean over to 90 degrees to be able to walk. He lives by himself. He has been trying Tylenol without
any relief. He denies a fever. No new injuries. He does not take any other medications currently. He was seen by [facility] orthopedics about 2 to 3 months ago and had some type of procedure of which she called spine scraping which did not
help. He denies any bowel or bladder dysfunction. He would use a walker for ambulation. No other to this time
Past History
Past History
ED Past Medical History: Cancer, Hypercholesterolemia and Other (DVT/PE, gout)
ED Past Surgical History: Cholecystectomy and Orthopedic (discectomy)
Social History
Tobacco: Non-smoker
Alcohol: Occasional
Drug: None
Personal:
Living: with family
Employment: Retired
Phy Exam
Physical Exam
Physical Exam:
General: Well appearing male NAD
HEENT:
NC/AT
Heart: RRR
Lungs: CTA
MSK: no significant tenderness to spine. Good ROM b/l LE
Neuro: Bilateral patellar reflexes intact at 2+. Bilateral achilles reflex 1+. negative straight leg raise bilaterally. No weakness noted. Good sensation to light touch
skin: Warm, no rash
Vascular: 2+ DP pulse bilateral feet, no rest pain
Injury Course
Orders/Labs/Results
Orders:
Orders
02/20/25 12:26
Ketorolac [Toradol] 15 mg IV NOW STA
02/20/25 12:28
CR Lumbar Spine 2 Or 3 Views Urgent
Comment:
Reason For Exam: back pain
Pt Eval And Treat Urgent
Activity Level: Ambulate
02/20/25 12:41
Complete Blood Count/With Diff Urgent
Comprehensive Metabolic Panel Urgent
02/20/25 15:13
Case Management Consult ONCE
Case Management Consult: VN/Home Care
Abnormal Lab Results
02/20/25
12:41
RBC 3.85 L 10^6/uL
(4.70-6.10)
Hgb 12.6 L g/dL
(13.0-18.0)
Hct 36.9 L %
(39.0-52.0)
MCV 95.8 H fL
(80.0-94.0)
MCH 32.7 H pg
(27.0-31.0)
Chloride 110 H mmol/L
(98-107)
Creatinine 1.7 H mg/dL
(0.7-1.3)
Total Protein 6.0 L g/dl
(6.3-8.2)
02/20/25 12:41
02/20/25 12:41
MDM/Problems Addressed
Differential Diagnosis Includes:
Patient presents with bilateral lower extremity pain worse with bearing weight. Is getting to the point where he is having trouble bearing weight or walking at all. He lives by himself. He is trying to use a walker. MRI from September of this year
demonstrated grade 1 spondylolisthesis of L4 and L5 with severe central canal stenosis. He had a procedure done by pain management which did not help. I suspect symptoms today are exacerbation of spinal stenosis. No significant weakness on exam.
Will try to treat symptoms check labs but consult physical therapy given independent status. No red flags to suggest cauda equina. No fever to suggest infectious source. He has good pulses to the feet do not suspect any vascular compromise
*Pulse Oximetry
SaO2: 98
Oxygen Mode of Delivery: Room air
Patient hypoxic: no
*Critical Care Note
Total Time (30-74mins, 75-104mins- exclusive of procedures): Not Applicable
Update Note
Update Note:
X-rays demonstrate significant degenerative change throughout lumbar spine with anterior listhesis of L4 on L5. Patient did well with physical therapy. He ambulated with a walker. [employer] talked to the patient regarding potential help
at home. He is interested in going home. He will follow-up with spine surgeon for further evaluation
ED Attending Note
-
Portions of this chart may have been created with voice recognition software.� Occasional wrong word or��sound alike� substitutions may have occurred due to the inherent limitations of voice recognition software.
Discharge Plan
Departure
Patient Disposition: Home (Routine Discharge)
Date of Disposition: 02/20/25
Time of Disposition: 16:20
Patient with high blood pressure during this ER visit?: No
Discharge Problem:
Spinal stenosis
Instructions: Muscle and Bone Pain (DC)
Prescriptions:
New
gabapentin 100 mg capsule
100 mg PO TID Qty: 30 0RF
prednisone 20 mg tablet
40 mg PO DAILY 5 Days Qty: 10 0RF
No Action
acetaminophen [Tylenol] 325 mg Tablet
325 mg PO BIDPRN PRN (Reason: mild pain)
therapeutic multivitamin Tablet
1 tab PO DAILY
Mucinex DM 30-600 mg Tablet Extended Release 12 Hr
1 tab PO DAILY
rosuvastatin [Crestor] 10 mg Tablet
10 mg PO DAILY
Pregaven capsule
1 cap PO DAILY
folic acid 1 mg Tablet
1 mg PO DAILY 30 Days Qty: 30 0RF
thiamine HCl (vitamin B1) 100 mg Tablet
100 mg PO BID 30 Days Qty: 60 0RF
Eliquis 5 mg tablet
5 mg PO BID 30 Days Qty: 70 0RF
Rx Instructions:
Take 2 tablets twice daily for 5 days after discharge
After 5 days, take 1 tablet twice daily
Referrals:
Iglesia Harrell MD [Family Provider, Family Practice]
Nathanael Staley MD [Active, Orthopedics]
Activity Restrictions/Additional Instructions:
Use medicine as prescribed. Follow-up with sales and marketing specialist. Return if needed otherwise
Interventions
Interventions:
*Risk Screen - Suicide Last Done: 02/20/25 11:12
*General Assessment Last Done: 02/20/25 12:45
*Neglect/Abuse Screening Last Done: 02/20/25 12:45
*ED- Fall Risk Assessment Last Done: 02/20/25 12:45
*ED COVID-19 Vaccine History Last Done: 02/20/25 12:45
*ED Influenza Vaccine History Last Done: 02/20/25 12:45
ED-Musculoskeletal Assessment Last Done: 02/20/25 12:45
Discharge Date and Time
Print Language: ROMANIAN
[2025-02-20] MEDS: TORADOL 15 MG IV (12:42)
[2025-02-20 12:59] LABS: Hematocrit 36.9 % (39.0-52.0); Hemoglobin 12.6 g/dL (13.0-18.0); Mean Corp Hgb Conc. 34.1 g/dL (33.0-37.0); Mean Corpuscular Volume 95.8 fL (80.0-94.0); Nucleated Red Blood Cells % 0 % (-); Platelet Count 157 10^3/uL (130-400); Red Cell Dist. Width 12.3 % (11.5-14.5)
[2025-02-20 13:07] LABS: ALT (SGPT) 12 U/L (0-50); AST (SGOT) 22 U/L (17-59); Albumin 3.9 g/dl (3.5-5.0); Alkaline Phosphatase 56 U/L (38-126); Blood Urea Nitrogen 19 mg/dl (9-20); Calcium 9.3 mg/dl (8.4-10.2); Carbon Dioxide 23 mmol/L (22-30); Chloride 110 mmol/L (98-107); Glucose 91 mg/dl (70-99); Potassium 4.9 mmol/L (3.5-5.1); Sodium 137 mmol/L (135-145); Total Protein 6.0 g/dl (6.3-8.2); eGFR 38.78
--- NOTE | 2025-02-20 15:48 | EDCM ---
Received consult, chart reviewed and I met with pt and his son bedside in ED. Pt lives alone, 1 story home, no HOLLY.
Independent in ADLs, personal care and ambulation. Has 2 walkers, needs to walk bent over as he has increasing pain when he stands straight. Was seen by PT, no skilled need per their note.
Son lives close and is supportive.
Pt has had [facility] in past and is agreeable to referral.
Referral placed in Care Port and discussed with Liaison Suri.
No further CM needs at this time.
== END 2025-02-20 16:32 | disposition home or self-care (01) ==
LOC: EMR 11:07
PROVIDERS: Physician Assistant; EMERGENCY PHYSICIAN Emergency Medicine; FAMILY PHYSICIAN Family Medicine
DX: M48.061 Spinal stenosis, lumbar region without neurogenic claudication (principal); M43.16 Spondylolisthesis, lumbar region; M47.816 Spondylosis without myelopathy or radiculopathy, lumbar region; E78.00 Pure hypercholesterolemia, unspecified; M10.9 Gout, unspecified; Z86.718 Personal history of other venous thrombosis and embolism; Z86.711 Personal history of pulmonary embolism
CPT/HCPCS: 99284; 96374; 72100; 80053; 85025

== ENCOUNTER 2025-03-24 14:22 | Inpatient (IN) | payer MEDICARE, SELFPAY ==
[2025-03-24] VITALS (12 sets, daily range): BP systolic 117–149; BP diastolic 72–82; BMI 28.9; BMI 27.5
--- NOTE | 2025-03-24 09:42 | ED.GENMED ---
History of Present Illness
General
Chief Complaint: Abdominal Symptoms
Source: patient and family (Daughter)
Time Seen by Provider: 03/24/25 09:29
History of Present Illness
History of Present Illness:
The final straw to coming in today was recurrent 5 decreased p.o. intake and diarrhea. No blood or mucus in the diarrhea. Multiple episodes of vomiting. No p.o. intake for 3 days per the patient and daughter. General weakness. Also complaining
of low back pain neck pain. Back pain has been chronic. Neck pain is new the last few weeks.
Past History
Past History
ED Past Medical History: Cancer, Hypercholesterolemia and Other (DVT/PE, gout)
ED Past Surgical History: Cholecystectomy and Orthopedic (discectomy)
Social History
Tobacco: Non-smoker
Alcohol: Occasional
Drug: None
Personal:
Living: with family
Employment: Retired
Review of Systems
Review of Systems
All Other Systems: Not applicable
Constitutional: Denies fever or chills
Respiratory: Denies trouble breathing
Cardiac: Denies chest pain
Phy Exam
Physical Exam
Physical Exam:
GENERAL: Alert and oriented in no apparent distress. Elderly and frail
EYE: Orbits normal.
NECK: Supple
ENT: Pharynx without erythema
CARDIAC: Regular rate and rhythm without any obvious murmurs.
LUNGS: Clear breath sounds,normal
ABDOMEN: Soft, without focal tenderness or distention
NEUROLOGICAL: Alert and oriented , grossly non-focal. Good lower extremity strength.
SKIN: Warm and dry, no rash or lesion, no discoloration, skin intact.
MUSCULOSKELETAL: Mild bilateral lower extremity edema with mild erythema and tenderness at the right first MTP joint mild swelling of the right foot
PSYCH: Normal and appropriate interaction.
Course
Orders/Labs/Results
Orders:
Orders
03/24/25 09:39
Cardiac Monitoring- Treatment ONCE
IV Insert/Care/Rem.- Treatment PRN
0.9% Sodium Chloride 500 ml [Nss] 500 ml IV BOLUS
03/24/25 09:40
Electrocardiogram (*1) Stat
Reason for Study: Abdominal Pain
EKG- Treatment ONCE
CR Obstruct Series W/pa Chest Urgent
Comment:
Reason For Exam: Recurrent vomiting/diarrhea
03/24/25 09:43
Complete Blood Count/With Diff Urgent
Comprehensive Metabolic Panel Urgent
Lipase Urgent
Troponin I Urgent
03/24/25 09:49
Stool Culture Urgent
TALIA Source: Feces/Stool
Specimen Description:
03/24/25 10:53
Straight cath- Treatment ONCE
03/24/25 11:13
Urinalysis Reflex To Culture Urgent
Date Specimen was Collected: 03/24/25
Time Specimen was Collected: 11:11
Comment: st cath
Urine Microscopic Reflex Cult Urgent
03/24/25 13:40
PRN Pain Medication Management As Directed
May give lesser potent ordered pain med per pt: Yes
preference::
Protocol:: Medication orders for pain may be administered in a
manner that supports deferring to patient preference
when the pt is:
- Requesting an ordered lesser potent pain medication.
Least to most potent pain medications are defined
as: acetaminophen < NSAID < tramadol < opioids
(morphine, oxycodone, hydromorphone).
- Requesting a lesser dose of the same medication IF
ORDERED.
- Requesting a less intrusive route of administration
if both routes are prescribed by the provider (PO <
IV).
03/24/25 13:44
Code Status As Directed
Resuscitation Status: Full Code
03/24/25 14:09
Admit Patient As Directed
Co-Sign Provider:
Level of Care: Inpatient admission
Assign to:: Medical/Surgical
Physician / Group: Magui
Diagnosis: Colitis
Reason for Hospitalization: Colitis
Expected length of stay greater than two midnights?: Yes
ELOS- Estimated Length of Stay in days: 4
I certify the patient meets the requirements for IP care: Yes
PRN Pain Medication Management As Directed
May give lesser potent ordered pain med per pt: Yes
preference::
Protocol:: Medication orders for pain may be administered in a
manner that supports deferring to patient preference
when the pt is:
- Requesting an ordered lesser potent pain medication.
Least to most potent pain medications are defined
as: acetaminophen < NSAID < tramadol < opioids
(morphine, oxycodone, hydromorphone).
- Requesting a lesser dose of the same medication IF
ORDERED.
- Requesting a less intrusive route of administration
if both routes are prescribed by the provider (PO <
IV).
03/24/25 14:10
Compression Sleeves [Pneumatic Compression Sleeves] As Directed
Type: Knee high
03/24/25 14:11
Admit/Transfer Patient As Directed
Co-Sign Provider:
Level of Care: Inpatient admission
Assign to:: Medical/Surgical
Physician / Group: Magui
Diagnosis: Colitis
Reason for Hospitalization: Colitis
Expected length of stay greater than two midnights?: Yes
ELOS- Estimated Length of Stay in days: 4
I certify the patient meets the requirements for IP care: Yes
PRN Pain Medication Management As Directed
May give lesser potent ordered pain med per pt: Yes
preference::
Protocol:: Medication orders for pain may be administered in a
manner that supports deferring to patient preference
when the pt is:
- Requesting an ordered lesser potent pain medication.
Least to most potent pain medications are defined
as: acetaminophen < NSAID < tramadol < opioids
(morphine, oxycodone, hydromorphone).
- Requesting a lesser dose of the same medication IF
ORDERED.
- Requesting a less intrusive route of administration
if both routes are prescribed by the provider (PO <
IV).
DX Deep Vein Thrombosis Video Routine
Abnormal Lab Results
03/24/25 03/24/25
09:43 11:13
RBC 3.80 L 10^6/uL
(4.70-6.10)
Hgb 11.9 L g/dL
(13.0-18.0)
Hct 34.6 L %
(39.0-52.0)
MCH 31.3 H pg
(27.0-31.0)
Absolute Lymphs (auto) 0.8 L 10^3/uL
(1.2-3.4)
Lymphocytes % 14.2 L %
(20.5-51.1)
Chloride 108 H mmol/L
(98-107)
Carbon Dioxide 20 L mmol/L
(22-30)
BUN 21 H mg/dl
(9-20)
Creatinine 2.1 H mg/dL
(0.7-1.3)
Total Protein 6.0 L g/dl
(6.3-8.2)
Ur Occult Blood Reflex 1+ A
(Negative)
Urine RBC 3-6 A /HPF
(0-2)
Urine Bacteria (Reflex) Few A
(Negative)
Urine Albumin (Reflex) 1+ A
(Neg - Trace)
03/24/25 09:43
03/24/25 09:43
Vital Signs
Initial and Last Documented VS:
Initial Vital Signs
Temp Pulse Resp BP Pulse Ox
98.8 F 93 20 117/76 100
03/24/25 08:54 03/24/25 08:54 03/24/25 08:54 03/24/25 08:54 03/24/25 08:54
Last Documented Vital Signs
Temp Pulse Resp BP Pulse Ox
97.6 F 74 12 123/75 96
03/24/25 14:42 03/24/25 14:42 03/24/25 14:42 03/24/25 14:42 03/24/25 14:42
MDM/Problems Addressed
Differential Diagnosis Includes:
Primary issue acutely today is nausea vomiting general weakness. P.o. intake decreased significantly. Highly doubt cardiac issue. Also ongoing back issues that are not new but progressive. History of severe spinal stenosis. Clinically doubt an
acute cauda equina issue. Patient has a nonacute abdomen. He is not distended. However clinically dehydrated. Would suspect electrolyte issue. Workup in progress
*Pulse Oximetry
SaO2: 98
Oxygen Mode of Delivery: Room air
Patient hypoxic: no
*EKG
Interpreted by ED Provider?: Yes
Interpretation: abnormal
Comparison EKG: changes noted
Heart Rate: 80
Rate: normal
Rhythm: sinus
[place]: left axis deviation
Interval: first degree heart block
QRS Pattern: normal QRS
Ischemia: non-specific ST changes
*Critical Care Note
Total Time (30-74mins, 75-104mins- exclusive of procedures): Not Applicable
Data Reviewed
Review of Other/Old Records Reveals: Labs, Records and Testing
Update Note
Update Note:
Patient with recurrent nausea vomiting diarrhea and weakness. Warrants admission for this issue. There may be a component of some of this related to the tramadol. He does have chronic back issues. Nothing to support an acute cauda equina
syndrome.
ED Attending Note
-
Portions of this chart may have been created with voice recognition software.� Occasional wrong word or��sound alike� substitutions may have occurred due to the inherent limitations of voice recognition software.
Discharge Plan
Departure
Patient Disposition: Admit
Date of Disposition: 03/24/25
Time of Disposition: 11:56
Presentation/result/management discussed w/ accepting MD/DO: Hospitalist
Discharge Problem:
Nausea vomiting diarrhea weakness, Progressive renal insufficiency, Chronic progressive back pain, Severe spinal stenosis
Interventions
Interventions:
*Risk Screen - Suicide Last Done: 03/24/25 08:54
*General Assessment Last Done: 03/24/25 08:54
*Neglect/Abuse Screening Last Done: 03/24/25 08:54
*ED- Fall Risk Assessment Last Done: 03/24/25 09:39
*ED COVID-19 Vaccine History Last Done: 03/24/25 09:39
*ED Influenza Vaccine History Last Done: 03/24/25 09:39
*Nursing Disposition Last Done: 03/24/25 14:42
JH-Kyxobx-Qwygvqlzjp Assessment Last Done: 03/24/25 09:36
Discharge Date and Time
Discharge Date/Time: 03/24/25 14:53
[2025-03-24] MEDS: NSS 500 IV (09:50)
[2025-03-24 10:04] LABS: Hematocrit 34.6 % (39.0-52.0); Hemoglobin 11.9 g/dL (13.0-18.0); Mean Corp Hgb Conc. 34.4 g/dL (33.0-37.0); Mean Corpuscular Volume 91.1 fL (80.0-94.0); Nucleated Red Blood Cells % 0 % (-); Platelet Count 257 10^3/uL (130-400); Red Cell Dist. Width 11.8 % (11.5-14.5)
[2025-03-24 10:29] LABS: Troponin I 0.015 ng/ml
[2025-03-24 10:38] LABS: ALT (SGPT) < 10 U/L (0-50); AST (SGOT) 18 U/L (17-59); Albumin 3.7 g/dl (3.5-5.0); Alkaline Phosphatase 64 U/L (38-126); Blood Urea Nitrogen 21 mg/dl (9-20); Calcium 9.2 mg/dl (8.4-10.2); Carbon Dioxide 20 mmol/L (22-30); Chloride 108 mmol/L (98-107); Estimated Creatinine Clearance 22 ml/min; Glucose 92 mg/dl (70-99); Lipase 195 U/L (23-300); Potassium 4.1 mmol/L (3.5-5.1); Sodium 136 mmol/L (135-145); Total Protein 6.0 g/dl (6.3-8.2); eGFR 30.09
[2025-03-24 11:47] LABS: Urine Character Clear (Clear)
[2025-03-24 11:58] LABS: Urine White Cell 0-2 /HPF (0-5)
--- NOTE | 2025-03-24 12:31 | PHANOTE ---
Addendum entered by Kallie Miller 03/24/25 13:25:
spoke to patient's son. he picks up rx's for his father, but doesn't know when/how his dad takes his meds.
Original Note:
med rec tech: trying to reach the patient's son or daughter to get med rec. Patient says that he does not know what meds he takes at home.
--- NOTE | 2025-03-24 15:14 | HPS.HSE ---
Family Physician
-
Family Physician: Iglesia Harrell
Chief Complaint
-
Chronic diarrhea
Vomiting
History of Present Illness
Mr. Gonsalves is a 85-year-old male with a past medical history of CKD stage III, hypertension, DVT PE, COPD, hyperlipidemia, prostate cancer status post prostatectomy, previous diagnosis of microscopic colitis in 2020 who was brought in by his
daughter who lives out of state due to chronic diarrhea decreased poor p.o. intake and vomiting. History obtained from daughter who states that patient has been having chronic diarrhea for up to 5 weeks now possibly longer. Patient reports having
multiple episodes greater than 3/day of diarrhea nonbloody nonblack stools. He has not been able to tolerate p.o. intake, this morning when given breakfast he threw it up. Daughter reports that refrigerator is full with patient not eating,
daughter and patient report that he has had some recent weight loss. Patient and daughter report no recent illness, no recent travel. Patient does not remember previous colonoscopy which was done here with GI in 2020 which found microscopic
colitis. Upon chart review patient was feeling better after diagnosis of microscopic colitis and treatment with GI Dr. Ureña. Patient does not report taking any medications to alleviate symptoms, does not report any aggravating factors. Patient
does not report taking Motrin Aleve or ibuprofen, reports taking Tylenol for back pain. Daughter reports he was most recently in ER for back pain and received tramadol, unknown what the patient is taking. Patient did not report alcohol use,
daughter also denies recent alcohol use although does not know. Per daughter patient is sometimes forgetful and has good days and bad days. Patient and daughter reported no recent fevers or chills chest pain shortness of breath, denies night
sweats, urinary symptoms. Patient does endorse back pain.
Medical History
Past Medical History
Past Medical History: Reports Cancer (Prostate), COPD, HTN, Hypercholesterolemia, Renal Failure (CKD 3) and Other (DVT/PE, skin cancer)
Past Surgical History: Reports Cholecystectomy, Orthopedic (Lumbar spinal surgery, carpal tunnel surgery) and Urological (Prostatectomy)
Social History
Unable to obtain full social history at this time due to: Dementia
Tobacco: Former Smoker
Alcohol: Occasional
Drug: None
Living: Alone
Employment: Retired
Family History
Family History: Not pertinent
Allergies / Home Medications
Allergies reflects when Allergies were last updated in [facility].
Home Medications with original date entered in [facility]
Allergy/Medication List:
Allergies
Allergy/AdvReac Type Severity Reaction Status Date / Time
No Known Allergies Allergy Verified 03/24/25 08:54
Home Medications
Pregaven 1 cap PO DAILY Supplement 02/27/24
apixaban 2.5 mg tablet (Eliquis) 2.5 mg PO BID 03/24/25
tramadol 50 mg tablet 50 mg PO DAILY 03/24/25
Review of Systems
-
Unable to obtain full review of systems at this time due to: Dementia
History Source: Patient and Family
Constitutional: Reports See HPI
EENT: Reports See HPI
Respiratory: Reports See HPI
Cardiac: Reports See HPI
Abdomen/GI: Reports See HPI
: Reports See HPI
Musculoskeletal: Reports See HPI
Skin: Reports See HPI
Neurological: Reports See HPI
Psych: Reports Calm and Dementia
Physical Exam
Vital Signs
Vital Signs
Temp Pulse Resp BP Pulse Ox
97.7 F 57 18 131/80 99
03/24/25 15:12 03/24/25 15:12 03/24/25 15:12 03/24/25 15:12 03/24/25 15:12
Physical Exam
General: Well Developed, Well Nourished, No Apparent Distress, Comfortable and Poor Appetite; No Fever
HEENT: NormoCephalic, Anicteric and Atraumatic
Respiratory: Clear and Non Labored Respirations; No Wheezes or Crackles
Cardiac: S1/S2 and Regular Rhythm; No Murmur or Peripheral Edema
GI: Soft, Non Tender, Non Distended and Normal Bowel Sounds
Genito-urinary: Deferred by me
Musculoskeletal: No Clubbing, Edema, Left Lower Extremity (Nonpitting) and Edema, Right Lower Extremity (Nonpitting)
Skin: Warm and Dry
Neuro: Awake and Alert; No AO x 3 (Oriented to self, place, not time, not situation)
Psych: Calm and Confused
Laboratory Results
-
03/24/25 09:43
03/24/25 09:43
Laboratory Results
Total Bilirubin 0.7 mg/dl (0.2-1.3) 03/24/25:43
AST 18 U/L (17-59) 03/24/25 09:43
ALT < 10 U/L (0-50) 03/24/25 09:43
Alkaline Phosphatase 64 U/L (38-126) 03/24/25 09:43
Troponin I 0.015 ng/ml 03/24/25 09:43
Lipase 195 U/L (23-300) 03/24/25 09:43
Impression/Plan
-
IMPRESSION:
Mr. Gonsalves is a 85-year-old male with a past medical history of CKD stage III, hypertension, DVT PE, COPD, hyperlipidemia, prostate cancer status post prostatectomy, previous diagnosis of microscopic colitis in 2020 who was brought in by his
daughter who lives out of state due to chronic diarrhea decreased poor p.o. intake and vomiting. Patient was admitted for colitis
PLAN:
#Colitis
#Chronic diarrhea
#History of microscopic colitis
Abdominal x-ray with possible enteritis/ileus
Colonoscopy 2020 with microscopic colitis
-CT abdomen pelvis without contrast
-Stool cultures
-Stool O&P
-C. difficile
-Fecal calprotectin
-Stool WBC
- GI consult, appreciate recs
#Altered mental status
#Acute toxic metabolic encephalopathy
#Metabolic acidosis, non-anion gap
Baseline dementia, but not at baseline
Metabolic acidosis in setting of GI losses
-IV fluids
Monitor BMP
#CKD 3
#VERONICA
Per chart review CR baseline 1.7�1.8
CR at presentation 2.1
Due to GI losses
-IV fluids
-Monitor BMP
#History of DVT
#History of PE
-Continue Eliquis
#Hypertension
No antihypertensives
Obtain records from daughter
#Chronic back pain
Tramadol
Acetaminophen
DVT prophylaxis: Eliquis, SCDs
CODE STATUS: Full code
[2025-03-24] MEDS: NSS 1000 IV (15:17)
[2025-03-24] MEDS: ELIQUIS 2.5 MG PO (19:47)
[2025-03-25] MEDS: NSS 1000 IV (05:07)
[2025-03-25 07:03] VITALS: BP 125/73
[2025-03-25 07:11] LABS: Hematocrit 31.1 % (39.0-52.0); Hemoglobin 10.5 g/dL (13.0-18.0); Mean Corp Hgb Conc. 33.8 g/dL (33.0-37.0); Mean Corpuscular Volume 91.2 fL (80.0-94.0); Platelet Count 206 10^3/uL (130-400); Red Cell Dist. Width 11.8 % (11.5-14.5)
[2025-03-25] MEDS: ELIQUIS 2.5 MG PO ×2 (07:21→19:28)
[2025-03-25] MEDS: ULTRAM 50 MG PO (07:21)
[2025-03-25 07:30] LABS: Blood Urea Nitrogen 17 mg/dl (9-20); Calcium 8.8 mg/dl (8.4-10.2); Carbon Dioxide 20 mmol/L (22-30); Chloride 110 mmol/L (98-107); Estimated Creatinine Clearance 27 ml/min; Glucose 78 mg/dl (70-99); Potassium 4.1 mmol/L (3.5-5.1); Sodium 134 mmol/L (135-145); eGFR 38.78
[2025-03-25 07:59] LABS: TSH 2.05 uIU/ml (0.47-4.68)
--- NOTE | 2025-03-25 09:48 | CM ---
telehealth case manager reviewed patient's chart and met with patient and patient lives with spouse in a one story home, patient is independent with adl's and uses a cane or walker with ambulation.
PCP: Dr Iglesia Harrell
Pharmacy: [facility] on [facility]
--- NOTE | 2025-03-25 09:55 | W.PN.HOSP.TC ---
Today's Communication/Plan
-
Stool studies pending
Encourage p.o. intake
Assessment / Plan
Assessment / Plan
Mr. Gonsalves is a 85-year-old male with a past medical history of CKD stage III, hypertension, DVT PE, COPD, hyperlipidemia, prostate cancer status post prostatectomy, previous diagnosis of microscopic colitis in 2020 who was brought in by his
daughter who lives out of state due to chronic diarrhea decreased poor p.o. intake and vomiting. Patient was admitted for colitis
PLAN:
#Colitis
#Chronic diarrhea
#History of microscopic colitis
Abdominal x-ray with possible enteritis/ileus
Colonoscopy [address] abdomen pelvis without contrast, no acute pathology
-Stool cultures pending
-Stool O&P pending
-C. difficile pending
-Fecal calprotectin pending
-Stool WBC pending
-TSH 2.05
- GI consult, appreciate recs
#Altered mental status
#Acute toxic metabolic encephalopathy
#Metabolic acidosis, non-anion gap
Baseline dementia, but not at baseline
Metabolic acidosis in setting of GI losses
- Encourage p.o. intake
Monitor BMP
#CKD 3
#VERONICA improving
Per chart review CR baseline 1.7�1.8
CR at presentation 2.1 today 1.7
Due to GI losses
-Encourage p.o. intake
-Monitor BMP
#History of DVT
#History of PE
-Continue Eliquis
#Hypertension
No antihypertensives
Obtain records from daughter
#Chronic back pain
Tramadol
Acetaminophen
# Right foot rash
Continue to monitor
DVT prophylaxis: Eliquis, SCDs
CODE STATUS: Full code
Anticipated Discharge: Within 24 hours
Subjective/Interval History
-
Patient was seen at bedside. He reports feeling better today was able to tolerate full liquid diet yesterday without nausea or vomiting. Has not had diarrhea since yesterday in the ER. Endorses no abdominal pain nausea or vomiting shortness of
breath or chest pain. Date of Service: March 25, 2025
Objective Data
-
Labs:
Laboratory Results
03/25/25
06:52
WBC 3.5 L
Hgb 10.5 L
Hct 31.1 L
Plt Count 206
Sodium 134 L
Potassium 4.1
Chloride 110 H
Carbon Dioxide 20 L
BUN 17
Creatinine 1.7 H
Glucose 78
Calcium 8.8
Vital Signs:
Vital Signs
Temp Pulse Resp BP Pulse Ox
98.3 F 90 16 125/73 96
03/25/25 07:03 03/25/25 07:03 03/25/25 07:03 03/25/25 07:03 03/25/25 07:40
I&O
03/24/25 03/25/25 03/26/25
06:59 06:59 06:59
Intake Total 1600 / 1600
Balance 1600 / 1600
Review of Systems
-
Unable to obtain full review of systems at this time due to: Dementia
History Source: Patient
Constitutional: Reports No Symptoms; Denies Fever or Chills
EENT: Denies Runny Nose
Respiratory: Denies Cough or Trouble Breathing
Cardiac: Denies Chest Pain or Palpitations
Abdomen/GI: Denies Abdominal Pain, Nausea, Vomiting, Diarrhea, Constipated or Bloody Stools
Genitourinary: Denies Dysuria
Skin: Denies Itching or Rash
Neuro: Denies Headache
Physical Exam
-
General: Well Developed, Well Nourished, No Apparent Distress and Comfortable; Negative Fever
HEENT: Normocephalic, Atraumatic and Anicteric
Respiratory: Clear to Auscultation and Non Labored Respirations; Negative Wheezes or Crackles
Cardiac: Regular Rhythm and S1/S2; Negative Murmur
GI: Soft, Nondistended, Normal Bowel Sounds and Tender (Left upper quadrant, left lower quadrant)
Musculoskeletal: No Clubbing and No Edema
Skin: Warm, Dry and Rash (Right foot erythematous patch)
Neuro: Awake and Alert
[2025-03-25 15:02] VITALS: BP 149/82
--- NOTE | 2025-03-25 16:03 | CON.GI ---
Consultation
-
Date/Time Consultation Requested: 03/25/2025
Date/Time Consultation Performed: 03/25/2025
Performing Provider: Johnie Stearns
Reason for Consultation: vomiting, diarrhea
Medical History
Chief Complaint / HPI
Chief Complaint: vomiting, diarrhea
History of Present Illness:
85 year old male with h/o HTN, DVT/PE (on Eliquis), CKD stage III, COPD, MC, and prostate cancer who p/w vomiting and diarrhea. He reports having persistent vomiting (all day) on 03/24 and came to ER. His vomiting started about 2 days ago, was
intractable yesterday. This was followed by diarrhea yesterday. About 4-5 watery BMs per pt. Since admission, his vomiting and diarrhea stopped completely. Tolerated diet today, no further vomiting/diarrhea.
Past Medical History
Past Medical History: Cancer, COPD, HTN and Other
Past Surgical History: Cholecystectomy, Orthopedic and Other
Social History
Tobacco: Former Smoker
Alcohol: Occasional
Allergies / Home Medications
Allergy/AdvReac Type Severity Reaction Status Date / Time
No Known Allergies Allergy Verified 03/24/25 08:54
�Medication �Instructions �Recorded
Pregaven 1 cap PO DAILY Supplement 02/27/24
apixaban 2.5 mg tablet (Eliquis) 2.5 mg PO BID 03/24/25
tramadol 50 mg tablet 50 mg PO DAILY 03/24/25
Review of Systems
Vital Signs
Temp Pulse Resp BP Pulse Ox
97.8 F 66 18 149/82 97
03/25/25 15:02 03/25/25 15:02 03/25/25 15:02 03/25/25 15:02 03/25/25 15:02
Physical Exam
Exam
General: Well Developed, Well Nourished and No Apparent Distress
HEENT: Normocephalic and Anicteric
Respiratory: Clear
Cardiac: S1/S2
GI: Soft, Non Tender, Non Distended and Normal Bowel Sounds
Results
WBC 3.5 10^3/uL (4.8-10.8) L 03/25/25 06:52
Hgb 10.5 g/dL (13.0-18.0) L 03/25/25 06:52
Hct 31.1 % (39.0-52.0) L 03/25/25 06:52
MCV 91.2 fL (80.0-94.0) 03/25/25 06:52
Plt Count 206 10^3/uL (130-400) 03/25/25 06:52
Absolute Neuts (auto) 4.1 10^3/uL (1.4-6.5) 03/24/25 09:43
Sodium 134 mmol/L (135-145) L 03/25/25 06:52
Potassium 4.1 mmol/L (3.5-5.1) 03/25/25 06:52
Chloride 110 mmol/L (98-107) H 03/25/25 06:52
Carbon Dioxide 20 mmol/L (22-30) L 03/25/25 06:52
BUN 17 mg/dl (9-20) 03/25/25 06:52
Creatinine 1.7 mg/dL (0.7-1.3) H 03/25/25 06:52
Calcium 8.8 mg/dl (8.4-10.2) 03/25/25 06:52
Total Bilirubin 0.7 mg/dl (0.2-1.3) 03/24/25 09:43
AST 18 U/L (17-59) 03/24/25 09:43
ALT < 10 U/L (0-50) 03/24/25 09:43
Alkaline Phosphatase 64 U/L (38-126) 03/24/25 09:43
Lipase 195 U/L (23-300) 03/24/25 09:43
Diagnostic Image Results:
Prior GI Procedures:
EGD:
Colonoscopy:
Assessment / Plan
-
85 year old male with h/o HTN, DVT/PE (on Eliquis), CKD stage III, COPD, MC, and prostate cancer who p/w vomiting and diarrhea.
Impression / Rec:
1. Nausea/vomiting, diarrhea - reports having persistent vomiting (all day) on 03/24 and came to ER. His vomiting started about 2 days ago, was intractable yesterday. This was followed by diarrhea yesterday. About 4-[address]
abd/pel w/o IV contrast was non-diagnostic and did not show acute findings. Stool studies are -ve for c diff, crypto/giardia. Since admission, his vomiting and diarrhea stopped completely. Tolerated diet today, no further vomiting/diarrhea.
Doubt this is from microscopic colitis. Likely transient ? viral gastroenteritis. Continue supportive mx, if pt continues to tolerate oral diet and no further vomiting/diarrhea, can d/c home. GI s/o, call with questions.
Total Time Spent with Patient (in minutes): 55
-
-
Thank you for consultation and allowing me to participate in the patient's care. Please call the radio communications mechanician GI physician during the after hours with any questions or concerns.
[2025-03-25 20:08] VITALS: BP 147/81
[2025-03-25 23:45] VITALS: BP 142/79
[2025-03-26] MEDS: ELIQUIS 2.5 MG PO ×2 (07:41→19:27)
[2025-03-26] MEDS: ULTRAM 50 MG PO (07:41)
[2025-03-26 07:49] LABS: Hematocrit 32.7 % (39.0-52.0); Hemoglobin 11.4 g/dL (13.0-18.0); Mean Corp Hgb Conc. 34.9 g/dL (33.0-37.0); Mean Corpuscular Volume 91.9 fL (80.0-94.0); Platelet Count 203 10^3/uL (130-400); Red Cell Dist. Width 11.5 % (11.5-14.5)
[2025-03-26 08:17] LABS: Blood Urea Nitrogen 14 mg/dl (9-20); Calcium 8.9 mg/dl (8.4-10.2); Carbon Dioxide 23 mmol/L (22-30); Chloride 108 mmol/L (98-107); Estimated Creatinine Clearance 29 ml/min; Glucose 81 mg/dl (70-99); Potassium 4.6 mmol/L (3.5-5.1); Sodium 137 mmol/L (135-145); eGFR 41.70
--- NOTE | 2025-03-26 10:13 | W.PN.HOSP.TC ---
Addendum entered and electronically signed by Marlin Armas MD 03/26/25 12:36:
Attending�addendum:
I saw and evaluated the patient. I reviewed the resident�s note and agree with findings and plan as documented in the resident�s note.��patient seen and examined at bedside, denies any chest pain or shortness of breath, no abdominal pain, improved
nausea, vomiting, diarrhea.
Physical�exam:
GENERAL : Patient is awake, alert, oriented x3
HEENT: Nonicteric sclerae, PERRLA, EOMI. Oropharynx clear. Moist mucous membranes. Conjunctivae appear well perfused.
CHEST: Chest wall is nontender.
HEART: Regular rate and rhythm without murmurs.
LUNGS: Clear to auscultation bilaterally.
ABDOMEN: Soft, positive bowel sounds, nontender, no organomegaly.
RECTAL: Deferred.
MUSCLES/EXTREMITIES: No abnormal range of motion, no swelling.SKIN: No rash, no excessive bruising, petechiae, or purpura.
NEUROLOGIC: Cranial nerves II-XII intact without motor/sensory deficit.
�
Assessment/plan:
Acute on chronic diarrhea.
CT shows no acute pathology.
Stool culture pending.
Diarrhea improved.
Appreciate GI input
Acute metabolic cephalopathy.
Baseline dementia
VERONICA on CKD 3.
Improving
History of DVT.
Continue Eliquis
�
Total time spent on today�s encounter was 51 minutes which included time spent in counseling the patient/family regarding diagnosis and treatment plan as listed above, goals of care, and symptom management. Case was discussed with nursing staff,
specialists, and care coordinators/case management. All labs and imaging personally reviewed by me. Remainder the time spent in detailed review of previous records, lab data, imaging, and other medical provider documentation.
Original Note:
Today's Communication/Plan
-
Improving diarrhea
Improving nausea vomiting
Imodium as needed
Assessment / Plan
Assessment / Plan
Mr. Gonsalves is a 85-year-old male with a past medical history of CKD stage III, hypertension, DVT PE, COPD, hyperlipidemia, prostate cancer status post prostatectomy, previous diagnosis of microscopic colitis in 2020 who was brought in by his
daughter who lives out of state due to chronic diarrhea decreased poor p.o. intake and vomiting. Patient was admitted for colitis
PLAN:
#Colitis
#Chronic diarrhea
#History of microscopic colitis
Abdominal x-ray with possible enteritis/ileus
Colonoscopy [address] abdomen pelvis without contrast, no acute pathology
-Stool cultures pending
-Stool O&P pending
-C. difficile negative
-Fecal calprotectin pending
-Stool WBC pending
-TSH 2.05
-Imodium as needed
- GI consult, appreciate recs
Doubt this is from microscopic colitis, possibly viral gastroenteritis
Continue supportive measures
Stable for discharge from GI standpoint
#Altered mental status
#Acute toxic metabolic encephalopathy
#Metabolic acidosis, non-anion gap
#Hyponatremia, resolved
Baseline dementia, but not at baseline
Metabolic acidosis in setting of GI losses
- Encourage p.o. intake
Monitor BMP
#CKD 3
#VERONICA improving
Per chart review CR baseline 1.7�1.8
CR at presentation 2.1 today 1.6
Due to GI losses
-Encourage p.o. intake
-Monitor BMP
#History of DVT
#History of PE
-Continue Eliquis
#Hypertension
No antihypertensives
Obtain records from daughter
#Chronic back pain
Tramadol
Acetaminophen
# Right foot rash
Continue to monitor
DVT prophylaxis: Eliquis, SCDs
CODE STATUS: Full code
Anticipated Discharge: Within 24 hours
Subjective/Interval History
-
Saw patient at bedside this morning. Reports decreasing amount of stools only went 1 time yesterday with diarrhea. No nausea no vomiting. No abdominal pain no fevers no chest pain no shortness of breath. Date of Service: March 26, 2025
Objective Data
-
Labs:
Laboratory Results
03/26/25
07:33
WBC 3.8 L
Hgb 11.4 L
Hct 32.7 L
Plt Count 203
Sodium 137
Potassium 4.6
Chloride 108 H
Carbon Dioxide 23
BUN 14
Creatinine 1.6 H
Glucose 81
Calcium 8.9
Vital Signs:
Vital Signs
Temp Pulse Resp BP Pulse Ox
98.6 F 73 16 142/79 97
03/25/25 23:45 03/25/25 23:45 03/25/25 23:45 03/25/25 23:45 03/26/25 08:20
I&O
03/25/25 03/26/25 03/27/25
06:59 06:59 06:59
Intake Total 1600 / 1600 240 / 240
Balance 1600 / 1600 240 / 240
Review of Systems
-
History Source: Patient
Constitutional: Denies Fever or Chills
EENT: Denies Sore Throat or Runny Nose
Respiratory: Denies Cough or Trouble Breathing
Cardiac: Denies Chest Pain or Palpitations
Abdomen/GI: Reports Diarrhea; Denies Abdominal Pain, Nausea, Vomiting or Constipated
Genitourinary: Denies Dysuria
Neuro: Denies Dizzy or Headache
Physical Exam
-
General: Well Developed, Well Nourished, No Apparent Distress and Comfortable; Negative Fever
HEENT: Normocephalic and Atraumatic
Respiratory: Clear to Auscultation and Non Labored Respirations; Negative Wheezes or Crackles
Cardiac: Regular Rhythm and S1/S2; Negative Murmur
GI: Soft, Nontender, Nondistended and Normal Bowel Sounds
Musculoskeletal: No Clubbing and No Edema
Skin: Warm and Dry
Neuro: Awake and Alert
[2025-03-26] MEDS: IMODIUM 2 MG PO (12:20)
[2025-03-26 13:12] VITALS: BP 140/97; BP 157/93; PULSE 75; O2SAT 95
[2025-03-26 13:46] VITALS: BP 127/83
--- NOTE | 2025-03-26 14:10 | CM ---
Addendum entered by Thalia Kim 03/26/25 15:29:
Per Resident/Nurse, patient now agreeable to SNF, requesting ref to [facility].
Original Note:
CM reviewed chart, patient seen bedside.
CM discussed therapy recommendations of SNF- patient declining, is agreeable to home therapy, TT to liaison with [facility] with referral.
CM offered to call patients family, patient declining at this time.
Patient reports his son lives [facility], will transport home when stable. Reports daughter lives in [place] but visits weekly.
CM will continue to follow for all d/c planning needs.
Plan; home with [facility], pt declining SNF
--- NOTE | 2025-03-26 14:39 | VNURNOTE ---
Chart reviewed. Home Health Liaison spoke with patient's son Franky to discuss [facility] nurse/therapy, visits, schedule and homebound status. He is agreeable and understands that visits at home will be 2-3 x per week to assess and teach medical
management. Son is aware that [facility] will contact them for start of care within a week after discharge from .
[facility] referral completed in [facility].
[2025-03-26 23:10] VITALS: BP 119/72
[2025-03-27] MEDS: ELIQUIS 2.5 MG PO ×2 (07:25→19:02)
[2025-03-27] MEDS: ULTRAM 50 MG PO (07:25)
[2025-03-27 08:13] VITALS: BP 136/84
[2025-03-27 08:14] LABS: Hematocrit 37.1 % (39.0-52.0); Hemoglobin 12.5 g/dL (13.0-18.0); Mean Corp Hgb Conc. 33.7 g/dL (33.0-37.0); Mean Corpuscular Volume 90.5 fL (80.0-94.0); Platelet Count 233 10^3/uL (130-400); Red Cell Dist. Width 11.7 % (11.5-14.5)
[2025-03-27 08:40] LABS: Blood Urea Nitrogen 15 mg/dl (9-20); Calcium 9.3 mg/dl (8.4-10.2); Carbon Dioxide 21 mmol/L (22-30); Chloride 107 mmol/L (98-107); Estimated Creatinine Clearance 29 ml/min; Glucose 79 mg/dl (70-99); Potassium 4.4 mmol/L (3.5-5.1); Sodium 136 mmol/L (135-145); eGFR 41.70
--- NOTE | 2025-03-27 09:39 | CM ---
CM reviewed chart, care ongoing.
CM spoke with patients son, Franky, agreeable to additional referrals to be placed to [facility] reviewing after rounds.
Patient will require insurance auth once accepting SNF found.
CM will continue to follow for all d/c planning needs.
Plan; SNF, referrals placed
--- NOTE | 2025-03-27 09:54 | W.PN.HOSP.TC ---
Addendum entered and electronically signed by Marlin Armas MD 03/27/25 14:12:
Attending�addendum:
I saw and evaluated the patient. I reviewed the resident�s note and agree with findings and plan as documented in the resident�s note.��patient seen and examined at bedside, denies any chest pain or shortness of breath, no abdominal pain, improved
nausea, vomiting, diarrhea.
Physical�exam:
GENERAL : Patient is awake, alert, oriented x3
HEENT: Nonicteric sclerae, PERRLA, EOMI. Oropharynx clear. Moist mucous membranes. Conjunctivae appear well perfused.
CHEST: Chest wall is nontender.
HEART: Regular rate and rhythm without murmurs.
LUNGS: Clear to auscultation bilaterally.
ABDOMEN: Soft, positive bowel sounds, nontender, no organomegaly.
RECTAL: Deferred.
MUSCLES/EXTREMITIES: No abnormal range of motion, no swelling.SKIN: No rash, no excessive bruising, petechiae, or purpura.
NEUROLOGIC: Cranial nerves II-XII intact without motor/sensory deficit.
�
Assessment/plan:
Acute on chronic diarrhea.
CT shows no acute pathology.
Stool culture pending.
Diarrhea improved.
Appreciate GI input
Acute metabolic cephalopathy.
Baseline dementia
VERONICA on CKD 3.
Improving
History of DVT.
Continue Eliquis
Patient medically cleared for discharge
�
Total time spent on today�s encounter was 51 minutes which included time spent in counseling the patient/family regarding diagnosis and treatment plan as listed above, goals of care, and symptom management. Case was discussed with nursing staff,
specialists, and care coordinators/case management. All labs and imaging personally reviewed by me. Remainder the time spent in detailed review of previous records, lab data, imaging, and other medical provider documentation
Original Note:
Today's Communication/Plan
-
Dispo planning
Assessment / Plan
Assessment / Plan
Mr. Gonsalves is a 85-year-old male with a past medical history of CKD stage III, hypertension, DVT PE, COPD, hyperlipidemia, prostate cancer status post prostatectomy, previous diagnosis of microscopic colitis in 2020 who was brought in by his
daughter who lives out of state due to chronic diarrhea decreased poor p.o. intake and vomiting. Patient was admitted for colitis
PLAN:
#Colitis
#Chronic diarrhea
#History of microscopic colitis
Abdominal x-ray with possible enteritis/ileus
Colonoscopy [address] abdomen pelvis without contrast, no acute pathology
-Stool cultures negative
-Stool O&P negative
-C. difficile negative
-Fecal calprotectin pending
-Stool WBC pending
-TSH 2.05
-Imodium as needed
- GI consult, appreciate recs
Doubt this is from microscopic colitis, possibly viral gastroenteritis
Continue supportive measures
Stable for discharge from GI standpoint
#Altered mental status
#Acute toxic metabolic encephalopathy
#Metabolic acidosis, non-anion gap
#Hyponatremia, resolved
Baseline dementia, but not at baseline
Metabolic acidosis in setting of GI losses
- Encourage p.o. intake
Monitor BMP
#CKD 3
#VERONICA improving
Per chart review CR baseline 1.7�1.8
CR at presentation 2.1 today 1.6
Due to GI losses
-Encourage p.o. intake
-Monitor BMP
#History of DVT
#History of PE
-Continue Eliquis
#Hypertension
No antihypertensives
Obtain records from daughter
#Chronic back pain
Tramadol
Acetaminophen
# Right foot rash
Continue to monitor
DVT prophylaxis: Eliquis, SCDs
CODE STATUS: Full code
Dispo: PT recommending SNF
Anticipated Discharge: Today
Subjective/Interval History
-
Patient reports doing much better. He is afebrile with no nausea vomiting, did not have any more diarrhea last night no abdominal pain no shortness of breath no chest pain. date of Service: March 27, 2025
Objective Data
-
Labs:
Laboratory Results
03/27/25
07:53
WBC 4.5 L
Hgb 12.5 L
Hct 37.1 L
Plt Count 233
Sodium 136
Potassium 4.4
Chloride 107
Carbon Dioxide 21 L
BUN 15
Creatinine 1.6 H
Glucose 79
Calcium 9.3
Vital Signs:
Vital Signs
Temp Pulse Resp BP Pulse Ox
97.3 F 71 12 136/84 93
03/27/25 08:13 03/27/25 08:13 03/27/25 08:13 03/27/25 08:13 03/27/25 08:13
I&O
03/26/25 03/27/25 03/28/25
06:59 06:59 06:59
Intake Total 240 / 240 600 / 600
Output Total 580 / 580
Balance 240 / 240 600 / 600 -580 / -580
Review of Systems
-
History Source: Patient
Constitutional: Reports No Symptoms; Denies Fever or Chills
EENT: Denies Sore Throat or Runny Nose
Respiratory: Denies Cough or Wheezing
Cardiac: Denies Chest Pain or Palpitations
Abdomen/GI: Denies Abdominal Pain, Nausea, Vomiting or Diarrhea
Genitourinary: Denies Dysuria
Skin: Denies Itching
Neuro: Denies Headache or Weakness
Physical Exam
-
General: Well Developed, Well Nourished, No Apparent Distress and Comfortable; Negative Fever
HEENT: Negative Normocephalic or Atraumatic
Respiratory: Clear to Auscultation and Non Labored Respirations; Negative Wheezes or Crackles
Cardiac: Regular Rhythm and S1/S2; Negative Murmur
GI: Soft, Nontender, Nondistended and Normal Bowel Sounds
Musculoskeletal: No Clubbing and No Edema
Skin: Warm
Neuro: Awake and Alert
[2025-03-27 10:18] VITALS: BP 124/78; PULSE 96
[2025-03-27 15:05] VITALS: BP 96/68
[2025-03-27] MEDS: TYLENOL 650 MG PO (19:11)
[2025-03-27 23:11] VITALS: BP 102/62
[2025-03-28 07:00] VITALS: BP 117/68
[2025-03-28] MEDS: ULTRAM 50 MG PO (07:46)
[2025-03-28] MEDS: ELIQUIS 2.5 MG PO (07:46)
[2025-03-28 08:36] LABS: Hematocrit 36.4 % (39.0-52.0); Hemoglobin 12.0 g/dL (13.0-18.0); Mean Corp Hgb Conc. 33.0 g/dL (33.0-37.0); Mean Corpuscular Volume 95.3 fL (80.0-94.0); Platelet Count 206 10^3/uL (130-400); Red Cell Dist. Width 11.9 % (11.5-14.5)
[2025-03-28 08:57] LABS: Blood Urea Nitrogen 17 mg/dl (9-20); Calcium 9.2 mg/dl (8.4-10.2); Carbon Dioxide 25 mmol/L (22-30); Chloride 107 mmol/L (98-107); Estimated Creatinine Clearance 26 ml/min; Glucose 76 mg/dl (70-99); Potassium 4.2 mmol/L (3.5-5.1); Sodium 137 mmol/L (135-145); eGFR 36.21
--- NOTE | 2025-03-28 09:22 | W.PN.HOSP.TC ---
Addendum entered and electronically signed by Marlin Armas MD 03/28/25 11:08:
Attending�addendum:
I saw and evaluated the patient. I reviewed the resident�s note and agree with findings and plan as documented in the resident�s note.��patient seen and examined at bedside, denies any chest pain or shortness of breath, no abdominal pain, improved
nausea, vomiting, diarrhea.
Physical�exam:
GENERAL : Patient is awake, alert, oriented x3
HEENT: Nonicteric sclerae, PERRLA, EOMI. Oropharynx clear. Moist mucous membranes. Conjunctivae appear well perfused.
CHEST: Chest wall is nontender.
HEART: Regular rate and rhythm without murmurs.
LUNGS: Clear to auscultation bilaterally.
ABDOMEN: Soft, positive bowel sounds, nontender, no organomegaly.
RECTAL: Deferred.
MUSCLES/EXTREMITIES: No abnormal range of motion, no swelling.SKIN: No rash, no excessive bruising, petechiae, or purpura.
NEUROLOGIC: Cranial nerves II-XII intact without motor/sensory deficit.
�
Assessment/plan:
Acute on chronic diarrhea.
CT shows no acute pathology.
Stool culture pending.
Diarrhea improved.
Appreciate GI input
Acute metabolic cephalopathy.
Baseline dementia
VERONICA on CKD 3.
Improving
History of DVT.
Continue Eliquis
Patient medically cleared for discharge
�
Total time spent on today�s encounter was 51 minutes which included time spent in counseling the patient/family regarding diagnosis and treatment plan as listed above, goals of care, and symptom management. Case was discussed with nursing staff,
specialists, and care coordinators/case management. All labs and imaging personally reviewed by me. Remainder the time spent in detailed review of previous records, lab data, imaging, and other medical provider documentation
Original Note:
Today's Communication/Plan
-
Dispo plan
Assessment / Plan
Assessment / Plan
Mr. Gonsalves is a 85-year-old male with a past medical history of CKD stage III, hypertension, DVT PE, COPD, hyperlipidemia, prostate cancer status post prostatectomy, previous diagnosis of microscopic colitis in 2020 who was brought in by his
daughter who lives out of state due to chronic diarrhea decreased poor p.o. intake and vomiting. Patient was admitted for colitis
PLAN:
#Colitis
#Chronic diarrhea
#History of microscopic colitis
Abdominal x-ray with possible enteritis/ileus
Colonoscopy [address]
CT abdomen pelvis without contrast, no acute pathology
-Stool cultures negative
-Stool O&P negative
-C. difficile negative
-Fecal calprotectin pending
-Stool WBC pending
-TSH 2.05
-Imodium as needed
- GI consult, appreciate recs
Doubt this is from microscopic colitis, possibly viral gastroenteritis
Continue supportive measures
Stable for discharge from GI standpoint
#Altered mental status
#Acute toxic metabolic encephalopathy
#Metabolic acidosis, non-anion gap
#Hyponatremia, resolved
Baseline dementia, but not at baseline
Metabolic acidosis in setting of GI losses
- Encourage p.o. intake
Monitor BMP
#CKD 3
#VERONICA improving
Per chart review CR baseline 1.7�1.8
CR at presentation 2.1 today 1.6
Due to GI losses
-Encourage p.o. intake
-Monitor BMP
#History of DVT
#History of PE
-Continue Eliquis
#Hypertension
No antihypertensives
Obtain records from daughter
#Chronic back pain
Tramadol
Acetaminophen
# Right foot rash
Continue to monitor
DVT prophylaxis: Eliquis, SCDs
CODE STATUS: Full code
Dispo: PT recommending SNF
Anticipated Discharge: Within 24 hours
Subjective/Interval History
-
Patient was seen at bedside, inquired about what he is going home, reinformed him about rehab, otherwise no complaints reports less episodes of diarrhea no shortness of breath no nausea no vomiting no chest pain no fevers no chills. Date of
Service: March 28, 2025
Objective Data
-
Labs:
Laboratory Results
03/28/25
07:53
WBC 3.9 L
Hgb 12.0 L
Hct 36.4 L
Plt Count 206
Sodium 137
Potassium 4.2
Chloride 107
Carbon Dioxide 25
BUN 17
Creatinine 1.8 H
Glucose 76
Calcium 9.2
Vital Signs:
Vital Signs
Temp Pulse Resp BP Pulse Ox
97.4 F 67 18 117/68 97
03/28/25 07:00 03/28/25 07:00 03/28/25 07:00 03/28/25 07:00 03/28/25 07:00
I&O
03/27/25 03/28/25 03/29/25
06:59 06:59 06:59
Intake Total 600 / 600 660 / 660
Output Total 580 / 580
Balance 600 / 600 80 / 80
Review of Systems
-
History Source: Patient
Constitutional: Reports No Symptoms; Denies Fever or Chills
EENT: Denies Runny Nose
Respiratory: Denies Cough or Trouble Breathing
Cardiac: Denies Chest Pain or Palpitations
Abdomen/GI: Denies Abdominal Pain, Nausea, Vomiting, Diarrhea or Constipated
Genitourinary: Denies Dysuria
Neuro: Denies Headache
Physical Exam
-
General: Well Developed, Well Nourished, No Apparent Distress and Comfortable
HEENT: Normocephalic and Atraumatic
Respiratory: Clear to Auscultation and Non Labored Respirations; Negative Wheezes or Crackles
Cardiac: Regular Rhythm and S1/S2; Negative Murmur
GI: Soft, Nontender, Nondistended and Normal Bowel Sounds
Musculoskeletal: No Clubbing and No Edema
Skin: Warm and Dry
Neuro: Awake and Alert
--- NOTE | 2025-03-28 11:46 | CM ---
CM reviewed chart, patient seen bedside, CM discussed SNF upon d/c.
Patient reports he wants to go home, is not agreeable to SNF. Patient agreeable for CM to call son, Franky.
CM spoke with Franky, discussed patient refusing SNF. Son aware and agreeable for home services, TT to [facility] with update.
Son will transport home around 2:00 p.m.
Patient seen again bedside, aware of plan for home with VN. IMM verbally reviewed, provided with copy, placed in chart.
Patient reports his home is handicap accessible, has all equipment needed as he cared for his .
CM will continue to follow for all d/c planning needs.
Plan; home with VN
--- NOTE | 2025-03-28 13:42 | W.DCSUMMARY ---
Addendum entered and electronically signed by Marlin Armas MD 03/29/25 08:05:
Attending�addendum:
I saw and evaluated the patient. I reviewed the resident�s note and agree with findings and plan as documented in the resident�s note.��patient seen and examined at bedside, denies any chest pain or shortness of breath, no abdominal pain, improved
nausea, vomiting, diarrhea.
Physical�exam:
GENERAL : Patient is awake, alert, oriented x3
HEENT: Nonicteric sclerae, PERRLA, EOMI. Oropharynx clear. Moist mucous membranes. Conjunctivae appear well perfused.
CHEST: Chest wall is nontender.
HEART: Regular rate and rhythm without murmurs.
LUNGS: Clear to auscultation bilaterally.
ABDOMEN: Soft, positive bowel sounds, nontender, no organomegaly.
RECTAL: Deferred.
MUSCLES/EXTREMITIES: No abnormal range of motion, no swelling.SKIN: No rash, no excessive bruising, petechiae, or purpura.
NEUROLOGIC: Cranial nerves II-XII intact without motor/sensory deficit.
�
Assessment/plan:
Acute on chronic diarrhea.
CT shows no acute pathology.
Stool culture pending.
Diarrhea improved.
Appreciate GI input
Acute metabolic cephalopathy.
Baseline dementia
VERONICA on CKD 3.
Improving
History of DVT.
Continue Eliquis
Patient medically cleared for discharge
�
Total time spent on today�s encounter was 40 minutes which included time spent in counseling the patient/family regarding diagnosis and treatment plan as listed above, goals of care, and symptom management. Case was discussed with nursing staff,
specialists, and care coordinators/case management. All labs and imaging personally reviewed by me. Remainder the time spent in detailed review of previous records, lab data, imaging, and other medical provider documentation
Original Note:
Documented by User: Neha Kellogg MD, Resident 03/28/25 14:54
Discharge Summary
Discharge Data
Date of Admission: 03/24/25
Date of Discharge: 03/28/25
-
Pending Results: Yes
Additional Pending Results:
Fecal Calprotectin
Hospital Course
Discharging Physician :
Dr. Armas
Dr. Kellogg
Disposition :
Home
Primary care physician :
Iglesia Harrell
Principal Discharge diagnosis :
Colitis
Chronic Discharge diagnosis :
Prostatecancer s/p prostatectomy
COPD
Essential HTN
Hypercholesterolemia
CKD 3
Hx of DVT/PE
Hospital Course :
Mr. Gonsalves is a 85-year-old male with a past medical history of CKD stage III, hypertension, DVT PE, COPD, hyperlipidemia, prostate cancer status post prostatectomy, previous diagnosis of microscopic colitis in 2020 who was brought in by his
daughter who lives out of state due to chronic diarrhea decreased poor p.o. intake and vomiting. Patient was admitted for colitis and GI was consulted. Abdominal xray in the ED was concerning for enteritis patient CT abdomen pelvis without contrast
was ordered in the hospital due to patient's vomiting. CT abdomen pelvis showed no acute intra-abdominal pathology, and patient's diet was advanced. Patient was treated with IV fluids for mild VERONICA and stool studies and TSH were sent. TSH and
stool studies yielded no culprit for the diarrhea and frequency of diarrhea decreased over his hospital stay. GI saw patient and determined that possible etiologies could be viral gastro enteritis and unlikely to be related to patient's history of
microscopic colitis. Patient was seen by PT who recommended discharge to SNF for rehabilitation however in consultation with son patient decided to be discharged home with VN. At discharge patient was AFVSS.
Important imaging findings :
CT abdomen/pelvis 03/24/2025:
IMPRESSION: No acute pathology of the abdomen or pelvis.
Tiny pericardial effusion versus pericardial thickening. Stable.
Prior cholecystectomy. Stable
Simple left renal cyst. New.
Mild diverticulosis. New.
Small hiatal hernia. Stable
Chest Xray 03/24/2025:
IMPRESSION:
1. No acute cardiopulmonary process.
2. Non-specific bowel gas pattern without signs of obstruction.
3. Possible mild diffuse enteritis/ileus.
Procedure findings :
Discharge Plan
-
Patient Disposition: Home (Routine Discharge)
Discharge Diagnosis/Procedures: Colitis
Condition: Fair
Diet: As tolerated
Activity: As tolerated
Driving Restrictions: As prior to admission
Bathing Restrictions: None
Other Services: VN
Referrals:
Iglesia Harrell MD [Family Provider, Family Practice] - in less than 1 week
Jayde Schmidt MD [Active, Gastroenterology]
Additional Discharge Medication Instructions: If having recurrent diarrhea use loperamide as needed, do not use for prolonged, Follow-up with GI
Prescriptions:
New
loperamide 2 mg Capsule
2 mg PO Q4HPRN PRN (Reason: Diarrhea) Qty: 60 0RF
Continued
Pregaven capsule
1 cap PO DAILY
tramadol 50 mg tablet
50 mg PO DAILY
Patient Comments:
last fill 02/26/25 #120
Eliquis 2.5 mg tablet
2.5 mg PO BID
Discharge Orders:
Discharge Patient (As Directed); Ordered 03/28/25
Ordered By: Neha Kellogg
Discharge Date and Time
Discharge Date/Time: 03/28/25 15:22
Print Language: NEPALESE

Documented by User: Marlin Armas MD 03/29/25 08:04
Discharge Summary
Discharge Data
Date of Admission: 03/24/25
Date of Discharge: 03/29/25
Discharge Plan
-
Patient Disposition: Home (Routine Discharge)
Discharge Diagnosis/Procedures: Colitis
Condition: Fair
Diet: As tolerated
Activity: As tolerated
Driving Restrictions: As prior to admission
Bathing Restrictions: None
Other Services: VN
Referrals:
Iglesia Harrell MD [Family Provider, Family Practice] - in less than 1 week
Jayde Schmidt MD [Active, Gastroenterology]
Additional Discharge Medication Instructions: If having recurrent diarrhea use loperamide as needed, do not use for prolonged, Follow-up with GI
Prescriptions:
New
loperamide 2 mg Capsule
2 mg PO Q4HPRN PRN (Reason: Diarrhea) Qty: 60 0RF
Continued
Pregaven capsule
1 cap PO DAILY
tramadol 50 mg tablet
50 mg PO DAILY
Patient Comments:
last fill 02/26/25 #120
Eliquis 2.5 mg tablet
2.5 mg PO BID
Discharge Orders:
Discharge Patient (As Directed); Ordered 03/28/25
Ordered By: Neha Kellogg
Discharge Date and Time
Discharge Date/Time: 03/28/25 15:22
Print Language: NEPALESE
[2025-03-28] MEDS: FLUZONE HIGH-DOSE 2025-26 0.5 ML IM (14:10)
[2025-03-28 14:16] VITALS: BP 114/75
[2025-03-28 18:42] LABS: Calprotectin, Fecal 43 ug/g (<=49)
== END 2025-03-28 15:22 | disposition home health service (06) | DRG 391 ==
LOC: 4 WEST ACU 14:22
PROVIDERS: Student in an Organized Health Care Education/Training Program; ADMITTING PHYSICIAN Internal Medicine; ATTENDING PHYSICIAN General Practice; CONSULT PHYSICIAN Internal Medicine Gastroenterology; EMERGENCY PHYSICIAN Emergency Medicine; FAMILY PHYSICIAN Family Medicine
DX: A08.4 Viral intestinal infection, unspecified (principal); G92.8 Other toxic encephalopathy; N17.9 Acute kidney failure, unspecified; E87.20 Acidosis, unspecified; N18.30 Chronic kidney disease, stage 3 unspecified; I12.9 Hypertensive chronic kidney disease with stage 1 through stage 4 chronic kidney disease, or unspecified chronic kidney disease; F03.90 Unspecified dementia, unspecified severity, without behavioral disturbance, psychotic disturbance, mood disturbance, and anxiety; Z86.718 Personal history of other venous thrombosis and embolism; Z79.01 Long term (current) use of anticoagulants; E78.00 Pure hypercholesterolemia, unspecified; J44.9 Chronic obstructive pulmonary disease, unspecified; Z90.79 Acquired absence of other genital organ(s); Z85.46 Personal history of malignant neoplasm of prostate; Z90.49 Acquired absence of other specified parts of digestive tract; N28.1 Cyst of kidney, acquired; K57.30 Diverticulosis of large intestine without perforation or abscess without bleeding; K44.9 Diaphragmatic hernia without obstruction or gangrene; Z87.891 Personal history of nicotine dependence; Z86.711 Personal history of pulmonary embolism; G89.29 Other chronic pain
CPT/HCPCS: 51701; 74022; 74176; 80048; 80053; 81003; 81015; 83690; 83993; 84443; 84484; 85025; 85027; 87045; 87046; 87077; 87324; 87328; 87329; 87427; 87449; 89055; 90662; 93005; 96360; 96361; 97116; 97162; 97166; 99285; G0008